=== PATIENT | female | born 1970 | race Caucasian/White ===

== ENCOUNTER 2016-10-24 11:20 | Emergency (ER) | payer BC ==
[2016-10-24 11:52] VITALS: TEMP 98.2
[2016-10-24] MEDS ORDERED: IPRATROPIUM-ALBUTEROL 3 ML NEB INHALATION STA (12:07)
[2016-10-24] MEDS ORDERED: predniSONE 20 MG TAB PO STA (12:07)
--- NOTE | 2016-10-24 12:40 | ED ---
General Adult HPI - General Chief complaint: Shortness of Breath Stated complaint: ANGE, Dx WITH PNEUMONIA, ASTHMA Time Seen by Provider: 10/24/16 11:52 Source: patient, family, RN notes reviewed Mode of arrival: ambulatory Limitations: no limitations - History of Present Illness Initial comments: 46-year-old female with history of asthma presenting for shortness of breath. Patient states that she had onset of shortness of breath and cough about 2 weeks ago after she was at a [facility]. She states she's been seen several times since this for treatment for asthma exacerbation. She states she has completed 2 separate courses of steroids as well as 2 separate courses of antibiotics. She states she felt better while on the steroids but after stopping steroids she feels like symptoms are returning. She states she feels short of breath. She also states that she has mild nonproductive cough. She has been using her home nebulizer treatments with improvement of her symptoms, but symptoms return. She denies any fevers or chills. She denies any chest pain. She is a previous cigarette smoker but states she quit about a year ago. - Related Data Home Medications Medication Instructions Recorded Confirmed Albuterol Nebulized [Ventolin 2.5 mg INHALATION RT-Q4H PRN 10/24/16 10/24/16 Nebulized] Albuterol Sulfate [Proair Hfa] 1 - 2 puff INHALATION RT-Q4H PRN 10/24/16 Loratadine [Claritin] 10 mg PO DAILY 10/24/16 10/24/16 Ranitidine HCl [Zantac] 150 mg PO DAILY 10/24/16 10/24/16 guaiFENesin [Mucinex] 600 mg PO Q12H PRN 10/24/16 10/24/16 Previous Rx's Medication Instructions Recorded Montelukast [Singulair] 10 mg PO HS #30 tab 10/24/16 predniSONE 20 mg PO DIRECTED #35 tab 10/24/16 Allergies Allergy/AdvReac Type Severity Reaction Status Date / Time clindamycin Allergy Unknown Verified 10/24/16 13:20 Penicillins Allergy Unknown Verified 10/24/16 13:20 sulfamethoxazole Allergy Unknown Verified 10/24/16 13:20 [From Bactrim] tetracycline Allergy Unknown Verified 10/24/16 13:20 trimethoprim [From Bactrim] Allergy Unknown Verified 10/24/16 13:20 Review of Systems ROS Statement: Those systems with pertinent positive or pertinent negative responses have been documented in the HPI. ROS Other: All systems not noted in ROS Statement are negative. Past Medical History Past Medical History: Asthma, GERD/Reflux History of Any Multi-Drug Resistant Organisms: None Reported Past Surgical History: Appendectomy Additional Past Surgical History / Comment(s): ovarian Past Psychological History: No Psychological Hx Reported Smoking Status: Former smoker Past Alcohol Use History: None Reported Past Drug Use History: None Reported General Exam - General Exam Comments Initial Comments: General: Awake and Alert. No acute distress. Does not appear acutely ill. Eyes: HARVINDER, EOM intact. No nystagmus. No scleral icterus. HENT: Atraumatic, normocephalic. Mucous membranes moist. Trachea midline. Neck: The neck is supple, there is no tenderness or JVD. Cardiovascular: Regular rate and rhythm. No murmur, rub, or gallop is appreciated. Distal pulses intact. Respiratory: Lungs are clear to auscultation bilaterally. Mild wheezes and decreased air movement. No rales, rhonchi. No respiratory distress. Gastrointestinal: Soft, Nontender. No rebound or guarding. Non-distended. No masses or organomegaly noted. No CVA tenderness. Musculoskeletal: No tenderness. Normal ROM. No gross deformity. No strength deficits. Neurological: A&Ox3. CN II-XII grossly intact, There are no obvious motor or sensory deficits. Coordination appears grossly intact. Speech is normal. Skin: Skin is warm and dry and no rashes or lesions are noted. Psychiatric: Cooperative, appropriate mood & affect, normal judgment. Limitations: no limitations Course Vital Signs 10/24/16 10/24/16 10/24/16 11:49 13:33 13:45 Temperature 98.2 F Pulse Rate 117 H 108 H 112 H Respiratory 24 Rate Blood Pressure 159/78 O2 Sat by Pulse 93 L Oximetry Medical Decision Making - Medical Decision Making 46-year-old female with history of asthma presenting for the asthma exacerbation. Patient states she's had several courses of steroids for this recently which did improve her symptoms until the steroids ended. She has not followed up with her PCP in over a year. She states she hasn't had problems with her asthma for many years up until recently. She is not actively tobacco user. Low suspicion of PE at this time given no significant risk factors. CXR without evidence of pneumonia Patient was given breathing treatment and prednisone. On reevaluation she states she is feeling improved. Improved air movement on reevaluation. Discussed restarting steroid treatment over a 2 week taper. Discussed importance of close follow-up with PCP. Discussed importance of pulmonary function testing and further management of her asthma. Patient also started on Singulair at this time. Patient has a nebulizer solution at home and does not need a refill. Discussed concerning signs symptoms for immediate return to the ED. Patient is agreeable with plan and discharge home. - Radiology Data Radiology results: report reviewed, image reviewed Disposition Clinical Impression: Asthma exacerbation Disposition: HOME SELF-CARE Instructions: Asthma (ED) Prescriptions: Montelukast [Singulair] 10 mg PO HS #30 tab predniSONE 20 mg PO DIRECTED #35 tab Referrals: Kwasi Santiago MD [Primary Care Provider] - 1-2 days Time of Disposition: 14:27
--- NOTE | 2016-10-24 13:37 | XR ---
EXAMINATION TYPE: XR chest 2V DATE OF EXAM: 10/24/2016 1:32 PM COMPARISON: NONE HISTORY: Chest pain TECHNIQUE: Single frontal view of the chest is obtained. FINDINGS: There is no focal air space opacity, pleural effusion, or pneumothorax seen. Granulomas seen within t he periphery of the right midlung zone. The cardiac silhouette size is within normal limits. The osseous structures are intact. IMPRESSION: 1. No acute process.
[2016-10-24 13:46] VITALS: PULSE 112
[2016-10-24 14:38] VITALS: BP 150/70; RESP 18
== END 2016-10-24 14:37 | disposition home or self-care (01) ==
LOC: EC 11:20
DX: J45.901 Unspecified asthma with (acute) exacerbation (principal); K21.9 Gastro-esophageal reflux disease without esophagitis; Z87.891 Personal history of nicotine dependence; Z79.899 Other long term (current) drug therapy; Z88.0 Allergy status to penicillin; Z88.1 Allergy status to other antibiotic agents
CPT/HCPCS: 94640; 71020; 99284; J7512

== ENCOUNTER 2016-11-09 21:32 | Observation (INO) | payer BC ==
[2016-11-09] MEDS ORDERED: SODIUM CHLORIDE 0.9% 1,000 ML IV STA (21:51)
--- NOTE | 2016-11-09 22:10 | ED ---
SOB HPI - General Chief Complaint: Shortness of Breath Stated Complaint: ANGE Time Seen by Provider: 11/09/16 21:51 Source: patient, RN notes reviewed, old records reviewed Mode of arrival: ambulatory Limitations: no limitations - History of Present Illness Initial Comments: This is a 46-year-old female with chief complaint of 1 month of difficulty in breathing and shortness of breath. Patient reports that she has history of asthma. She states that she's been on steroids multiple times this past month. She originally thought that all this started after sitting by a bonfire to and early October. She states that she also was diagnosed with pneumonia and completed a round of antibiotics. She states that it is not getting any better after continued antibiotics. She reports that she just finished steroids on Saturday and continues to have this nonproductive cough. She rates the emergency department with oxygen saturation at 93%, tachycardic at 120 bpm. Patient was placed on 2 L O2 at that time. Patient also reports that she'll have intermittent chest pain. She states over entire chest when it does occur. Patient states it does not occur all the time. She states that just is continue to happen intermittently over the past months. She states is been a little worse today. Denies any nausea or vomiting abdominal pain. Denies any back pain, peripheral paresthesias, headache, changes in vision. - Related Data Home Medications Medication Instructions Recorded Confirmed Albuterol Nebulized [Ventolin 2.5 mg INHALATION RT-Q4H PRN 10/24/16 11/09/16 Nebulized] Albuterol Sulfate [Proair Hfa] 2 puff INHALATION RT-Q4H PRN 10/24/16 11/09/16 Loratadine [Claritin] 10 mg PO DAILY 10/24/16 11/09/16 Ranitidine HCl [Zantac] 150 mg PO BID 10/24/16 11/09/16 guaiFENesin [Mucinex] 600 mg PO Q12H PRN 10/24/16 11/09/16 Benzonatate [Tessalon Perles] 200 mg PO TID PRN 11/09/16 11/09/16 Ibuprofen [Advil] 200 mg PO Q8HR PRN 11/09/16 11/09/16 Saline Nasal Gel [[place] Nasal Gel] 1 applic TOPICAL DAILY PRN 11/09/16 11/09/16 Previous Rx's Medication Instructions Recorded Montelukast [Singulair] 10 mg PO HS #30 tab 10/24/16 Allergies Allergy/AdvReac Type Severity Reaction Status Date / Time clindamycin Allergy Rash/Hives Verified 11/10/16 03:40 Penicillins Allergy Unknown Verified 11/09/16 22:40 sulfamethoxazole Allergy Rash/Hives Verified 11/10/16 03:40 [From Bactrim] tetracycline Allergy Rash/Hives Verified 11/10/16 03:40 trimethoprim [From Bactrim] Allergy Rash/Hives Verified 11/10/16 03:40 Review of Systems ROS Statement: Those systems with pertinent positive or pertinent negative responses have been documented in the HPI. ROS Other: All systems not noted in ROS Statement are negative. Past Medical History Past Medical History: Asthma, GERD/Reflux, Pneumonia History of Any Multi-Drug Resistant Organisms: None Reported Past Surgical History: Appendectomy Additional Past Surgical History / Comment(s): ovarian Past Psychological History: No Psychological Hx Reported Smoking Status: Former smoker Past Alcohol Use History: None Reported Past Drug Use History: None Reported - Past Family History Mother Family Medical History: Chest Pain / Angina, COPD, Coronary Artery Disease (CAD) Father Family Medical History: Hypertension General Exam - General Exam Comments Initial Comments: Well-appearing 46-year-old female. No distress. Limitations: no limitations General appearance: alert, in no apparent distress Head exam: Present: atraumatic, normocephalic, normal inspection Eye exam: Present: normal appearance, PERRL, EOMI. Absent: scleral icterus, conjunctival injection, periorbital swelling ENT exam: Present: normal exam, mucous membranes moist Neck exam: Present: normal inspection. Absent: tenderness, meningismus, lymphadenopathy Respiratory exam: Present: normal lung sounds bilaterally, wheezes (wheezing and non productive cough). Absent: respiratory distress, rales, rhonchi, stridor Cardiovascular Exam: Present: regular rate, normal rhythm, normal heart sounds. Absent: systolic murmur, diastolic murmur, rubs, gallop, clicks GI/Abdominal exam: Present: soft, normal bowel sounds. Absent: distended, tenderness, guarding, rebound, rigid Extremities exam: Present: normal inspection, full ROM, normal capillary refill. Absent: tenderness, pedal edema, joint swelling, calf tenderness Back exam: Present: normal inspection Neurological exam: Present: alert, oriented X3, CN II-XII intact Psychiatric exam: Present: normal affect, normal mood Skin exam: Present: warm, dry, intact, normal color. Absent: rash Course Vital Signs 11/09/16 11/09/16 11/09/16 21:44 22:03 22:22 Temperature 98.9 F Pulse Rate 113 H 107 H 100 Respiratory 24 18 Rate Blood Pressure 162/80 160/90 O2 Sat by Pulse 93 L 93 L Oximetry 11/09/16 11/09/16 11/10/16 22:27 22:33 00:17 Temperature 97.9 F Pulse Rate 102 H 100 104 H Respiratory 18 18 Rate Blood Pressure 161/89 O2 Sat by Pulse 97 95 Oximetry 11/10/16 11/10/16 11/10/16 00:18 00:31 02:45 Temperature Pulse Rate 98 93 108 H Respiratory 20 Rate Blood Pressure 147/95 O2 Sat by Pulse 97 Oximetry Medical Decision Making - Medical Decision Making This is a 46-year-old female is had multiple rounds of steroids and an antibiotic to treat for pneumonia and shortness of breath. Patient arrives to the emergency department with an oxygen saturation of 93% on room air. Patient reports that she just feels that she cannot get enough air when she takes a deep breath in. Patient reports she's been using breathing treatments multiple times at home. Last breathing treatment was in our prior to arriving to emergency department. She does have a history of asthma. She is a previous smoker. She quit smoking in 1981. She states that overall she is generally healthy. All of her lab work was obtained and negative for any acute process. Negative d-dimer. Chest x-ray was also negative. Patient continues to have some mild wheezing after DuoNeb treatment. Patient given IV Solu-Medrol. Discussed the case with Dr. Navarrete. We will be admitting the patient for repeat cardiac enzymes for her intermittent chest pain. Unlikely for this to be significant cardiac issue due to the length of time. We also will do some IV steroids and repeated breathing treatments. Patient agrees to the admission. Patient understands treatment plan will comply. - Lab Data Result diagrams: 11/09/16 22:16 11/09/16 22:16 Lab Results 11/09/16 11/09/16 11/09/16 Range/Units 22:16 22:16 22:16 WBC 7.5 (3.8-10.6) k/uL RBC 4.81 (3.80-5.40) m/uL Hgb 15.4 (11.4-16.0) gm/dL Hct 44.4 (34.0-46.0) % MCV 92.2 (80.0-100.0) fL MCH 32.1 (25.0-35.0) pg MCHC 34.8 (31.0-37.0) g/dL RDW 13.1 (11.5-15.5) % Plt Count 216 (150-450) k/uL Neutrophils % 50 % Lymphocytes % 32 % Monocytes % 6 % Eosinophils % 9 % Basophils % 1 % Neutrophils # 3.8 (1.3-7.7) k/uL Lymphocytes # 2.4 (1.0-4.8) k/uL Monocytes # 0.4 (0-1.0) k/uL Eosinophils # 0.7 (0-0.7) k/uL Basophils # 0.1 (0-0.2) k/uL PT (9.0-12.0) sec INR (<1.1) APTT (22.0-30.0) sec D-Dimer (<0.60) mg/L FEU Sodium 143 (137-145) mmol/L Potassium 3.7 (3.5-5.1) mmol/L Chloride 106 (98-107) mmol/L Carbon Dioxide 26 (22-30) mmol/L Anion Gap 11 mmol/L BUN 17 (7-17) mg/dL Creatinine 0.80 (0.52-1.04) mg/dL Est GFR (MDRD) Af Amer >60 (>60 ml/min/1.73 sqM) Est GFR (MDRD) Non-Af >60 (>60 ml/min/1.73 sqM) Glucose 94 (74-99) mg/dL Calcium 9.2 (8.4-10.2) mg/dL Total Bilirubin 0.5 (0.2-1.3) mg/dL AST 23 (14-36) U/L ALT 39 (9-52) U/L Alkaline Phosphatase 108 (38-126) U/L Total Creatine Kinase 35 (30-135) U/L CK-MB (CK-2) 0.4 (0.0-2.4) ng/mL CK-MB (CK-2) Rel Index 1.1 Troponin I <0.012 (0.000-0.034) ng/mL Total Protein 6.8 (6.3-8.2) g/dL Albumin 4.1 (3.5-5.0) g/dL 11/09/16 Range/Units 22:16 WBC (3.8-10.6) k/uL RBC (3.80-5.40) m/uL Hgb (11.4-16.0) gm/dL Hct (34.0-46.0) % MCV (80.0-100.0) fL MCH (25.0-35.0) pg MCHC (31.0-37.0) g/dL RDW (11.5-15.5) % Plt Count (150-450) k/uL Neutrophils % % Lymphocytes % % Monocytes % % Eosinophils % % Basophils % % Neutrophils # (1.3-7.7) k/uL Lymphocytes # (1.0-4.8) k/uL Monocytes # (0-1.0) k/uL Eosinophils # (0-0.7) k/uL Basophils # (0-0.2) k/uL PT 9.9 (9.0-12.0) sec INR 1.0 (<1.1) APTT 23.1 (22.0-30.0) sec D-Dimer 0.19 (<0.60) mg/L FEU Sodium (137-145) mmol/L Potassium (3.5-5.1) mmol/L Chloride (98-107) mmol/L Carbon Dioxide (22-30) mmol/L Anion Gap mmol/L BUN (7-17) mg/dL Creatinine (0.52-1.04) mg/dL Est GFR (MDRD) Af Amer (>60 ml/min/1.73 sqM) Est GFR (MDRD) Non-Af (>60 ml/min/1.73 sqM) Glucose (74-99) mg/dL Calcium (8.4-10.2) mg/dL Total Bilirubin (0.2-1.3) mg/dL AST (14-36) U/L ALT (9-52) U/L Alkaline Phosphatase (38-126) U/L Total Creatine Kinase (30-135) U/L CK-MB (CK-2) (0.0-2.4) ng/mL CK-MB (CK-2) Rel Index Troponin I (0.000-0.034) ng/mL Total Protein (6.3-8.2) g/dL Albumin (3.5-5.0) g/dL 11/10/16 00:25 Patient's EKG shows normal sinus rhythm. Possible left atrial enlargement. Nonspecific ST abnormality. Prolonged QT. Abnormal EKG. This was a ventricular beats per minute. Normal section 94 ms. QT QTC 370/47 SECONDS. No evidence of ST elevation. No evidence of atrial or ventricular arrhythmias. - Radiology Data Radiology results: report reviewed His x-ray reviewed and negative for any acute process. Disposition Clinical Impression: Shortness of breath, Cough, Asthma, Intermittent chest pain Disposition: ADMITTED IP TO THIS [facility] Condition: Stable Time of Disposition: 01:15
[2016-11-09] MEDS ORDERED: IPRATROPIUM-ALBUTEROL 3 ML NEB INHALATION STA ×2 (22:11→23:42)
[2016-11-09 22:24] LABS: Basophils # (A) 0.1 k/uL (0-0.2); Basophils % (A) 1 %; CH 32.8; CHCM 35.8; Eosinophils # (A) 0.7 k/uL (0-0.7); Eosinophils % (A) 9 %; HCT 44.4 % (34.0-46.0); HDW 2.75; HGB 15.4 gm/dL (11.4-16.0); Luc # (Auto) 0.17; Luc % (Auto) 2; Lymphocytes # (A) 2.4 k/uL (1.0-4.8); Lymphocytes % (A) 32 %; MCH 32.1 pg (25.0-35.0); MCHC 34.8 g/dL (31.0-37.0); MCV 92.2 fL (80.0-100.0); Mean Platelet Volume 6.2; Monocytes # (A) 0.4 k/uL (0-1.0); Monocytes % (A) 6 %; Neutrophils # (A) 3.8 k/uL (1.3-7.7); Neutrophils % (A) 50 %; RBC 4.81 m/uL (3.80-5.40); RDW 13.1 % (11.5-15.5); WBC 7.5 k/uL (3.8-10.6); WBC (Perox) 7.33
[2016-11-09 22:37] LABS: ALT 39 U/L (9-52); AST 23 U/L (14-36); Alkaline Phosphatase 108 U/L (38-126); Anion Gap 11 mmol/L; Blood Urea Nitrogen 17 mg/dL (7-17); Calcium 9.2 mg/dL (8.4-10.2); Carbon Dioxide 26 mmol/L (22-30); Chloride 106 mmol/L (98-107); Glucose 94 mg/dL (74-99); Non-African American GFR(MDRD) >60 (>60 ml/min/1.73 sqM); Potassium 3.7 mmol/L (3.5-5.1); Sodium 143 mmol/L (137-145); Total Bilirubin 0.5 mg/dL (0.2-1.3); Total Protein 6.8 g/dL (6.3-8.2)
[2016-11-09 22:43] LABS: Creatine Kinase 35 U/L (30-135)
[2016-11-09 22:44] LABS: Partial Thromboplastin Time 23.1 sec (22.0-30.0); Prothrombin Time 9.9 sec (9.0-12.0)
--- NOTE | 2016-11-09 22:56 | XR ---
EXAM: XR Chest, 2 Views CLINICAL HISTORY: Reason: difficulty breathing TECHNIQUE: Frontal and lateral views of the chest. COMPARISON: Chest radiographs 10/24/2016 FINDINGS: Lungs: Stable small radiodense nodule peripheral right mid to lower lung zone suggesting small calcified right lower lobe pulmonary granuloma. Lungs are otherwise clear. No acute pulmonary infiltrates or consolidations. Pleural space: No evidence of pleural effusion or pneumothorax. Heart: Heart size and mediastinal structures are within normal limits. Mediastinum: Unremarkable. Bones/joints: Imaged bony thorax is unremarkable. Other findings: No significant change since 10/24/2016. IMPRESSION: No evidence of active chest disease.
[2016-11-09 22:57] LABS: Creatine Kinase MB 0.4 ng/mL (0.0-2.4); Troponin I <0.012 ng/mL (0.000-0.034)
[2016-11-09] MEDS ORDERED: methylPREDNISolone SOD SUCCI 125 MG/2 ML VIAL IV STA (23:42)
[2016-11-10] MEDS ORDERED: MAG HYDROX/AL HYDROX/SIMETH 30 ML, HYOSCYAMINE ELIXIR 10 ML, CIMETIDINE HCL 300 MG, LID... PO STA ×4 (00:20)
[2016-11-10] MEDS ORDERED: ACETAMINOPHEN TAB 325 MG TAB PO PRN (01:25)
[2016-11-10] MEDS ORDERED: NALOXONE 0.4 MG/ML 1 ML VIAL IV PRN (01:25)
[2016-11-10] MEDS ORDERED: Acetaminophen-Codeine 300-30mg TAB PO PRN (01:25)
[2016-11-10] MEDS ORDERED: BENZOCAINE/MENTHOL LOZENG 1 EACH LOZENGE MUCOUS MEM PRN (01:25)
[2016-11-10] MEDS: SODIUM CHLORIDE 0.9% 1,000 ML IV SCH ×3 (04:08→19:47)
[2016-11-10 05:49] LABS: Creatine Kinase 41 U/L (30-135)
[2016-11-10] MEDS ORDERED: methylPREDNISolone SOD SUCCI 125 MG/2 ML VIAL IV SCH (06:00)
[2016-11-10 06:02] LABS: Creatine Kinase MB 0.5 ng/mL (0.0-2.4); Troponin I <0.012 ng/mL (0.000-0.034)
[2016-11-10 07:33] LABS: Glucose,Whole Blood 145 mg/dL (75-99)
[2016-11-10] MEDS: IPRATROPIUM-ALBUTEROL 3 ML NEB INHALATION SCH ×4 (07:35→20:19)
[2016-11-10] MEDS: guaiFENesin 600 MG TABLET.ER PO SCH ×2 (08:21→21:38)
[2016-11-10] MEDS: PANTOPRAZOLE 40 MG/10 ML VIAL IV SCH (08:21)
[2016-11-10 10:23] LABS: Creatine Kinase 45 U/L (30-135)
[2016-11-10 10:36] LABS: Creatine Kinase MB 0.6 ng/mL (0.0-2.4); Troponin I <0.012 ng/mL (0.000-0.034)
[2016-11-10 12:25] LABS: Glucose,Whole Blood 203 mg/dL (75-99)
--- NOTE | 2016-11-10 14:04 | HP ---
DATE OF ADMISSION: This dictation is both history and physical and discharge summary. The patient is a 46-year-old who came in with complaints of shortness of breath, wheezing, and patient does have history of asthma. Patient was found to be asthma exacerbation. Patient was started on systemic steroids. The patient was complaining of cough with yellowish sputum production. Patient chest x-ray did not show any pneumonic process. Patient is presently on 2 L of oxygen, which we will get rid of. Will ambulate the patient. The patient was tachycardic secondary to hypoxemia, which improved now and patient is not tachycardic anymore. While walking will also check her vitals and if patient is not tachycardic anymore, not tachypneic anymore and patient is saturating okay, patient will be discharged today. Otherwise, will keep her one more day. Patient will not require any antibiotics at this point of time. Patient's yellowish sputum is secondary to asthmatic bronchitis. Patient denied any fever, chills, dysuria, nausea, vomiting. REVIEW OF SYSTEMS: CONSTITUTIONAL: No fever, no malaise, no fatigue. HEENT: No recent visual problems or hearing problems. Denied any sore throat. CARDIOVASCULAR: No chest pain, orthopnea, PND, no palpitations, no syncope. RESPIRATORY: As described in HPI. GASTROINTESTINAL: No diarrhea, no nausea, no vomiting, no abdominal pain. Normoactive bowel sounds. NEUROLOGICAL: No headaches, no weakness, no numbness. HEMATOLOGICAL: Denies any bleeding or petechiae. GENITOURINARY: Denies any burning micturition, frequency, or urgency. MUSCULOSKELETAL/RHEUMATOLOGICAL: Denies any joint pain, swelling, or any muscle pain. ENDOCRINE: Denies any polyuria or polydipsia. The rest of the 14 point review of systems is negative. Home medications include: 1. Albuterol. 2. Loratadine. 3. Ranitidine. 4. Guaifenesin. 5. Benzonatate. 6. Ibuprofen. 7. Saline nasal spray. 8. The patient is also on montelukast. ALLERGIES: Allergic to CLINDAMYCIN, PENICILLIN, BACTRIM, TETRACYCLINE. Past medical history is significant for asthma, gastroesophageal reflux disease, pneumonias in the past, appendectomy. SOCIAL HISTORY: Former smoker. Quit smoking years ago. Denied any alcohol abuse or any drug abuse. FAMILY HISTORY: Significant for mother with coronary artery disease and father had hypertension, PHYSICAL EXAMINATION: VITAL SIGNS: Temperature 97.2, pulse of 90, respiratory rate of 18, blood pressure is 122/69, saturating at 92% on 2 L of O2 nasal cannula. GENERAL: The patient is alert and oriented x3, not in any acute distress. Well developed, well nourished. HEENT: Pupils are round and equally reacting to light. EOMI. No scleral icterus. No conjunctival pallor. Normocephalic, atraumatic. No pharyngeal erythema. No thyromegaly. CARDIOVASCULAR: S1 and S2 present. No murmurs, rubs, or gallops. RESPIRATORY EXAMINATION: Fairly good air entry into bilateral lung rousseau. No wheezing was appreciated. ABDOMEN: Soft, nontender, nondistended, normoactive bowel sounds. No palpable organomegaly. MUSCULOSKELETAL: No joint swelling or deformity. EXTREMITIES: No cyanosis, clubbing, or pedal edema. NEUROLOGICAL: Gross neurological examination did not reveal any focal deficits. SKIN: No rashes. LABORATORY DATA: CBC, CMP, essentially within normal limits. Troponins and EKG are within normal limits. Chest x-ray as mentioned above. ASSESSMENT AND PLAN: 1. Acute asthma exacerbation. Patient appears to have moderate chronic intermittent asthma. The patient will be continued on systemic steroids, inhalational treatments and further management and discharge plan as mentioned above. Acute hypoxemia secondary to asthma exacerbation. 2. Gastroesophageal reflux disease for which patient is on ranitidine, which will be continued. 3. Seasonal allergies. The patient's primary care physician is Dr. Santiago and if patient is clinically doing well with walking pulse ox with stable vital signs that is controlled heart rate, controlled respiratory rate and good pulse ox, patient will be discharged today. Otherwise, patient will end up staying here. If patient is being discharged, I will discharge her on weaning dose of steroids. Follow with Dr. Santiago in 3 to 7 days. Activity as tolerated. Regular diet. This dictation is both H&P and discharge summary.
[2016-11-10 17:55] LABS: Glucose,Whole Blood 126 mg/dL (75-99)
[2016-11-10 20:59] LABS: Glucose,Whole Blood 194 mg/dL (75-99)
[2016-11-10] MEDS: methylPREDNISolone SOD SUCCI 40 MG/ML 1 ML VIAL IV SCH (21:39)
[2016-11-11] MEDS: SODIUM CHLORIDE 0.9% 1,000 ML IV SCH ×2 (02:43→11:41)
[2016-11-11 07:31] LABS: Glucose,Whole Blood 131 mg/dL (75-99)
[2016-11-11 07:44] VITALS: BP 131/79; RESP 18; TEMP 97.5
[2016-11-11] MEDS: guaiFENesin 600 MG TABLET.ER PO SCH (08:07)
[2016-11-11] MEDS: methylPREDNISolone SOD SUCCI 40 MG/ML 1 ML VIAL IV SCH (08:07)
[2016-11-11] MEDS: PANTOPRAZOLE 40 MG/10 ML VIAL IV SCH (08:07)
[2016-11-11] MEDS: IPRATROPIUM-ALBUTEROL 3 ML NEB INHALATION SCH ×2 (09:10→13:40)
[2016-11-11 10:51] LABS: Glucose,Whole Blood 160 mg/dL (75-99)
[2016-11-11 12:15] LABS: Glucose,Whole Blood 170 mg/dL (75-99)
[2016-11-11 14:10] VITALS: PULSE 98
--- NOTE | 2016-11-11 14:38 | DS ---
DATE OF ADMISSION: 11/10/2016 DATE OF DISCHARGE: 11/11/2016 Patient is admitted for asthma exacerbation. Patient is clinically doing. Ambulating again, will ambulate the patient again. If patient is clinically doing well, will be discharged today and patient has a cough with reddish sputum production, which is typical of ( ) which we see in asthma. Patient was seen and examined on the day of discharge. Vitals are stable. PHYSICAL EXAMINATION: GENERAL: The patient is alert and oriented x3, not in any acute distress. Well developed, well nourished. HEENT: Pupils are round and equally reacting to light. EOMI. No scleral icterus. No conjunctival pallor. Normocephalic, atraumatic. No pharyngeal erythema. No thyromegaly. CARDIOVASCULAR: S1 and S2 present. No murmurs, rubs, or gallops. PULMONARY: Chest is clear to auscultation, no wheezing or crackles. ABDOMEN: Soft, nontender, nondistended, normoactive bowel sounds. No palpable organomegaly. MUSCULOSKELETAL: No joint swelling or deformity. EXTREMITIES: No cyanosis, clubbing, or pedal edema. NEUROLOGICAL: Gross neurological examination did not reveal any focal deficits. SKIN: No rashes. FINAL DIAGNOSES: 1. Asthma exacerbation. 2. Tachycardia, due to hypoxemia. Will obtain TSH. 3. Gastroesophageal reflux disease. 4. Seasonal allergies. Patient will be discharged today with follow up with Dr. Kwasi Santiago. Patient has follow-up tomorrow. Activity as tolerated. Regular diet. Avoid allergens. If patient's walking pulse ox and the patient does well after a walk without desaturations or tachycardia or tachypnea, patient will be discharged today.
== END 2016-11-11 14:23 | disposition home or self-care (01) ==
LOC: EC 21:32 → 4MS4W 11-10 01:49
PROVIDERS: ADMIT Hospitalist; ATTEND Hospitalist
DX: J45.21 Mild intermittent asthma with (acute) exacerbation (principal); R09.02 Hypoxemia; K21.9 Gastro-esophageal reflux disease without esophagitis; Z79.899 Other long term (current) drug therapy; Z88.1 Allergy status to other antibiotic agents; Z88.0 Allergy status to penicillin; Z88.2 Allergy status to sulfonamides; Z87.01 Personal history of pneumonia (recurrent); Z87.891 Personal history of nicotine dependence; Z82.5 Family history of asthma and other chronic lower respiratory diseases; Z82.49 Family history of ischemic heart disease and other diseases of the circulatory system
CPT/HCPCS: 96365; 96366 ×2; 96361; 96374; 99285; 36415; 94640 ×4; 93005 ×2; 85379 ×2; 80053; 82550 ×2; 82553 ×2; 84484 ×2; 85025; 85610; 85730; 71020; G0378 ×2; J2920 ×2; J2930; C9113 ×2

== ENCOUNTER → 2016-11-20 | Outpatient (CLI) | payer BC ==
--- NOTE | 2016-11-20 21:53 | WWHP ---
DATE OF DICTATION: 11/20/2016 CHIEF COMPLAINT: The patient is here for her routine gynecologic exam and mammogram. HISTORY OF PRESENT ILLNESS: This is a 46-year-old G2, P2 with an LMP of 2013. The patient states she has a history of somewhat irregular menses; throughout her life they have been intermittently irregular. She was placed on Depo-Provera several years ago, partly because of the menstrual irregularity. She was amenorrheic while on Depo-Provera, and this was discontinued in 2011. Shortly thereafter she was placed on oral contraceptives until 2013, when her prescription ran out. She has not had a period since then and is no longer on oral contraception. She denies any significant hot flashes. She is otherwise without gynecologic complaints. Her last pelvic exam was about 2011 and her last mammogram was around that time as well. PAST MEDICAL HISTORY: 1. Asthma. 2. Fibrocystic changes of the breast. 3. Gastroesophageal reflux disease. 4. Hiatal hernia. 5. Migraine headaches. 6. Hypoglycemia, which is diet-controlled. MEDICATIONS: 1. Prednisone 20 mg daily. 2. Claritin 10 mg daily. 3. Zantac 150 mg daily. 4. Mucinex 1 daily. 5. Albuterol inhaler 2 puffs q.i.d. p.r.n. 6. Singulair at bedtime p.r.n. 7. Collagen supplement 1 t.i.d., but she does not use it every day. ALLERGIES: 1. SEPTRA. 2. BACTRIM. 3. CLINDAMYCIN. 4. PENICILLIN. 5. TETRACYCLINE. Many of these caused breathing difficulties. PAST SURGICAL HISTORY: 1. In 1985, a left ovarian cystectomy and appendectomy. 2. She has also had multiple laparoscopies in the past. PAST OB HISTORY: Two vaginal deliveries. 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 She has had some episodes of irregular menses throughout her life, but she also did have times when they were regular. She was told she had polycystic ovarian syndrome at one point. She has no history of STDs. SOCIAL HISTORY: She quit smoking in 2014; has about 3 to 4 alcoholic drinks per month; denies drug use. She has been since 2005. This is her second marriage. Her current is from [place]. She is expecting her fourth grandchild. FAMILY HISTORY: Grandfather had lung cancer. She has 2 cousins who had what she believes was ovarian cancer. Mother had an CO and COPD. REVIEW OF SYSTEMS: She has gained about 20 pounds since she was put on steroids about a month ago for her asthma exacerbation. She denies respiratory problems. CARDIAC: She has had occasional chest pains and she has been seen for this and is still undergoing workup for this. GI: She believes the steroids have caused heartburn. PHYSICAL EXAM: Blood pressure 138/90. Height 5 feet 2 inches. Weight 142 pounds. Temperature 98.1. Pulse 94. This is a well-developed, well-nourished white female who is alert and oriented x3, in no acute distress. HEENT is within normal limits. NECK: Supple without mass or thyromegaly. CHEST AND LUNGS: Clear to auscultation. HEART: Regular rate and rhythm. Breasts are without mass or discharge. The left breast is mildly tender. Axillary exam is negative for adenopathy. BACK: Negative for CVA tenderness. ABDOMEN: Soft, nontender, without palpable masses. PELVIC EXAM: Normal external genitalia. Cervix and vagina reveal minimal atrophy without lesions. There is no evidence of prolapse. There is no unusual discharge. The uterus is midposition, nongravid size and nontender. There are no palpable adnexal masses or tenderness. Rectal exam is negative for mass or tenderness and is negative for occult blood. EXTREMITIES: Nontender. IMPRESSION: A 46-year-old female with secondary amenorrhea for more than 2 years. This most likely represents menopausal change. Differential diagnosis will also include polycystic ovarian syndrome and less likely thyroid dysfunction, since she states thyroid testing was done by her primary care physician recently. PLAN: 1. Pap smear was performed. 2. Self breast examination was discussed. 3. Mammogram will be done today. 4. Blood tests will include FSH and estradiol. She states thyroid function testing was done through Dr. Santiago recently and will confirm this with him. 5. Osteoporosis prevention was discussed. 6. She will return in one year.
--- NOTE | 2016-11-21 12:47 | MM ---
Reason for exam: screening (asymptomatic). Last mammogram was performed 8 years and 1 month ago. History: Taking hormonal contraceptives for 1 month beginning at age 38. Physical Findings: A clinical breast exam by your physician is recommended on an annual basis and results should be correlated with mammographic findings. MG 3D Screening Mammo W/Cad Bilateral CC and MLO view(s) were taken. Prior study comparison: October 28, 2008, bilateral diagnostic digital mammog. May 01, 2004, bilateral screening mammogram. The breast tissue is heterogeneously dense. This may lower the sensitivity of mammography. Finding: There are typically benign round calcifications in the left breast. There is no discrete abnormality. ASSESSMENT: Benign, BI-RAD 2 RECOMMENDATION: Routine screening mammogram of both breasts in 1 year.
== END ==
LOC: WWCWWP 07:59
PROVIDERS: ATTEND Obstetrics & Gynecology
DX: Z12.31 Encounter for screening mammogram for malignant neoplasm of breast (principal)
CPT/HCPCS: 77063; G0202

== ENCOUNTER → 2016-11-20 | Outpatient (CLI) | payer BC ==
[2016-11-20 11:37] LABS: Follicle Stimulating Hormone 47.2 mIU/mL
== END | disposition home or self-care (01) ==
LOC: LABWHC1 09:18
PROVIDERS: ATTEND Obstetrics & Gynecology
DX: N91.1 Secondary amenorrhea (principal)
CPT/HCPCS: 36415; 82670; 83001

== ENCOUNTER 2017-04-23 00:35 | Emergency (ER) | payer BC ==
[2017-04-23] MEDS ORDERED: IPRATROPIUM-ALBUTEROL 3 ML NEB INHALATION STA (01:01)
[2017-04-23] MEDS ORDERED: methylPREDNISolone SOD SUCCI 125 MG/2 ML VIAL IM ONE (01:01)
[2017-04-23] MEDS ORDERED: BENZONATATE 100 MG CAP PO STA (01:01)
--- NOTE | 2017-04-23 01:52 | XR ---
EXAMINATION TYPE: XR chest 2V DATE OF EXAM: 04/23/2017 COMPARISON: 11/09/2016 HISTORY: Cough TECHNIQUE: Frontal and lateral views of the chest are obtained. FINDINGS: Heart and mediastinum are normal. Lungs are clear. Costophrenic angles are clear. There is a small calcified granuloma in the periphery of right midlung. There is no evidence of pleural effus ion. Bony thorax is intact. IMPRESSION: No active cardiopulmonary disease. No change.
--- NOTE | 2017-04-23 02:19 | ED ---
General Adult HPI - General Chief complaint: Upper Respiratory Infection Stated complaint: cough,ANGE Time Seen by Provider: 04/23/17 00:47 Source: patient Mode of arrival: ambulatory Limitations: no limitations - History of Present Illness Initial comments: 47-year-old female patient presents to emergency department today for complaints of shortness of breath, wheezing, and upper respiratory symptoms. Patient states that she started 2-3 days ago with nasal congestion, sore throat , and slight cough. Patient states that she feels this has made her asthma worse, she states that she has been wheezing and having some shortness of breath throughout the day today. She states that her chest feels tight. She states that she did do a breathing treatment around 11:30pm, she states it didn' t seem to help. She states that she does have albuterol at home. She states that her last asthma flare up was in December. She denies being on any maintenance medications. States that she uses her albuterol only intermittently. She denies any sick contacts. She denies use of cigarettes. Patient denies any recent rash, fever, chills, chest pain, abdominal pain, nausea, vomiting, diarrhea, constipation, back pain, numbness, tingling, dizziness, weakness, hematuria, dysuria, urinary urgency, urinary frequency, headache, visual changes , or any other complaints. - Related Data Home Medications Medication Instructions Recorded Confirmed Albuterol Nebulized [Ventolin 2.5 mg INHALATION RT-Q4H PRN 10/24/16 04/23/17 Nebulized] Albuterol Sulfate [Proair Hfa] 2 puff INHALATION RT-Q4H PRN 10/24/16 04/23/17 Loratadine [Claritin] 10 mg PO DAILY 10/24/16 04/23/17 Ranitidine HCl [Zantac] 150 mg PO BID 10/24/16 04/23/17 Ibuprofen [Advil] 200 mg PO Q8HR PRN 11/09/16 04/23/17 Previous Rx's Medication Instructions Recorded CHLORPHEN-HYDROcod 8-10mg/5ml 5 ml PO Q12HR #50 ml 04/23/17 [Tussionex] Ipratropium-Albuterol Nebulize 3 ml INHALATION Q4H PRN #60 neb 04/23/17 [Duoneb 0.5 mg-3 mg/3 ml Soln] predniSONE 50 mg PO DAILY #5 tab 04/23/17 Allergies Allergy/AdvReac Type Severity Reaction Status Date / Time clindamycin Allergy Rash/Hives Verified 04/23/17 00:41 iodine Allergy Anaphylaxis Verified 04/23/17 00:41 peanut Allergy Anaphylaxis Verified 04/23/17 00:41 Penicillins Allergy Anaphylaxis Verified 04/23/17 00:41 shellfish derived Allergy Anaphylaxis Verified 04/23/17 00:41 sulfamethoxazole Allergy Rash/Hives Verified 04/23/17 00:41 [From Bactrim] tetracycline Allergy Rash/Hives Verified 04/23/17 00:41 trimethoprim [From Bactrim] Allergy Rash/Hives Verified 04/23/17 00:41 lactose AdvReac Nausea Verified 04/23/17 00:41 oranges Allergy Anaphylaxis Uncoded 04/23/17 00:41 eggs AdvReac Rash/Hives Uncoded 04/23/17 00:41 Review of Systems ROS Statement: Those systems with pertinent positive or pertinent negative responses have been documented in the HPI. ROS Other: All systems not noted in ROS Statement are negative. Past Medical History Past Medical History: Asthma, GERD/Reflux, Pneumonia Additional Past Medical History / Comment(s): hernia, hypoglycemia History of Any Multi-Drug Resistant Organisms: None Reported Past Surgical History: Appendectomy Additional Past Surgical History / Comment(s): ovarian Past Anesthesia/Blood Transfusion Reactions: No Reported Reaction Past Psychological History: No Psychological Hx Reported Smoking Status: Former smoker Past Alcohol Use History: Occasional Past Drug Use History: None Reported - Past Family History Mother Family Medical History: Chest Pain / Angina, COPD, Coronary Artery Disease (CAD) Father Family Medical History: Hypertension General Exam Limitations: no limitations General appearance: alert, in no apparent distress, other (This is a well- developed, well-nourished adult female patient in no acute distress. Vital signs upon presentation were temperature 90.8F, pulse 89, respirations 20, blood pressure 171/84, pulse ox 96% on room air.) ENT exam: Present: normal exam, normal oropharynx, mucous membranes moist, TM's normal bilaterally Neck exam: Present: normal inspection. Absent: tenderness, meningismus, lymphadenopathy Respiratory exam: Present: normal lung sounds bilaterally, wheezes (Tight expiratory wheezing noted in all posterior lung rousseau.), other (Respirations are even and unlabored, patient is tachypneic.). Absent: respiratory distress, rales, rhonchi, stridor, chest wall tenderness, accessory muscle use Cardiovascular Exam: Present: regular rate, normal rhythm, normal heart sounds. Absent: systolic murmur, diastolic murmur, rubs, gallop, clicks GI/Abdominal exam: Present: soft, normal bowel sounds. Absent: distended, tenderness, guarding, rebound, rigid Neurological exam: Present: alert, oriented X3, CN II-XII intact Psychiatric exam: Present: normal affect, normal mood Skin exam: Present: warm, dry, intact, normal color. Absent: rash Course Vital Signs 04/23/17 04/23/17 04/23/17 00:39 01:14 02:34 Temperature 98 F 96.9 F L Pulse Rate 89 88 65 Respiratory 20 18 Rate Blood Pressure 171/84 151/78 O2 Sat by Pulse 96 97 Oximetry Medical Decision Making - Medical Decision Making 47-year-old female patient presented for evaluation of cough, wheezing, shortness of breath. Patient is concerned that her asthma may be worsening. Physical examination did reveal tight expiratory wheezing in all posterior lung rousseau. Chest x-ray was negative for any acute process, it did show a calcified granuloma in the right lung. She did receive Solu-Medrol IM, DuoNeb, and Tessalon Perles here in the department. She states that her symptoms are somewhat improved, she feels she is breathing easier. Reexamination did reveal that her lungs were now clear, with good air movement. She will be discharged home with a prescription for prednisone, DuoNeb, and Tussionex to take at night. She is instructed to follow-up with her primary care physician as she has planned this morning. She is instructed to return here immediately for any new, worsening, or concerning symptoms. Patient was informed of all findings including the calcified granuloma in the right lung, she was already aware of this, she was given a copy of the x-ray report to take with her to her primary care physician for follow-up. All of her questions were answered. She verbalizes understanding and agrees with this plan. - Radiology Data Radiology results: report reviewed, image reviewed Two-view x-ray of the chest shows a heart and mediastinum are normal. Lungs are clear. Costophrenic angles are clear. There is a small calcified granuloma in the periphery of the right mid lung. There is no evidence of pleural effusion. Bony thorax is intact. Impression by Dr. Morales shows no active cardiopulmonary disease. No change. Disposition Clinical Impression: Asthma exacerbation, Viral upper respiratory illness, Calcified granuloma of lung Disposition: HOME SELF-CARE Condition: Good Instructions: Asthma (ED), Viral Syndrome (ED) Additional Instructions: Take medication as directed. Do DuoNeb breathing treatments every 4-6 hours as needed. Complete steroid prescription in full. Follow-up with your primary care physician for recheck in 1-2 days. Return here immediately for any new, worsening, or concerning symptoms. Prescriptions: CHLORPHEN-HYDROcod 8-10mg/5ml [Tussionex] 5 ml PO Q12HR #50 ml Ipratropium-Albuterol Nebulize [Duoneb 0.5 mg-3 mg/3 ml Soln] 3 ml INHALATION Q4H PRN #60 neb PRN Reason: Wheezing predniSONE 50 mg PO DAILY #5 tab Referrals: Kwasi Santiago MD [Primary Care Provider] - 1-2 days Time of Disposition: 02:09
[2017-04-23 02:46] VITALS: BP 151/78; PULSE 65; RESP 18; TEMP 96.9
== END 2017-04-23 02:34 | disposition home or self-care (01) ==
LOC: EC 00:35
DX: J45.901 Unspecified asthma with (acute) exacerbation (principal); J84.10 Pulmonary fibrosis, unspecified; B34.9 Viral infection, unspecified; K21.9 Gastro-esophageal reflux disease without esophagitis; Z87.891 Personal history of nicotine dependence; Z79.899 Other long term (current) drug therapy; Z88.1 Allergy status to other antibiotic agents; Z91.048 Other nonmedicinal substance allergy status; Z91.010 Allergy to peanuts; Z91.013 Allergy to seafood; Z88.3 Allergy status to other anti-infective agents; Z91.011 Allergy to milk products; Z91.018 Allergy to other foods; Z91.012 Allergy to eggs; Z88.0 Allergy status to penicillin
CPT/HCPCS: 99283 ×2; 96372 ×2; 94640; 71020; J2930

== ENCOUNTER 2017-10-17 00:26 | Emergency (ER) | payer BC ==
[2017-10-17 00:33] VITALS: RESP 20
[2017-10-17] MEDS ORDERED: IPRATROPIUM-ALBUTEROL 3 ML NEB INHALATION STA (00:42)
--- NOTE | 2017-10-17 00:46 | ED ---
SOB HPI - General Chief Complaint: Shortness of Breath Stated Complaint: SOB Time Seen by Provider: 10/17/17 00:34 Source: patient, RN notes reviewed Mode of arrival: ambulatory - History of Present Illness Initial Comments: This is a 47-year-old female with history of asthma who presents to the emergency department with chief complaint of shortness of breath. Patient states that she has been having an exacerbation of her asthma since Saturday. She states that over the last 2 days her shortness of breath has become worse. She states that she has been using nebulizer breathing treatments 4 times yesterday and 2 or 3 times today. She states that she has been using her rescue albuterol inhaler at least 3 times per day. She does admit to associated cough and chills. She states that earlier today while at work she experienced left-sided chest pain that was sharp in nature and radiated to her back. She denies any fevers, abdominal pain, nausea or vomiting, diarrhea or constipation. - Related Data Home Medications Medication Instructions Recorded Confirmed Albuterol Nebulized [Ventolin 2.5 mg INHALATION RT-Q4H PRN 10/24/16 04/23/17 Nebulized] Albuterol Sulfate [Proair Hfa] 2 puff INHALATION RT-Q4H PRN 10/24/16 04/23/17 Loratadine [Claritin] 10 mg PO DAILY 10/24/16 04/23/17 Ranitidine HCl [Zantac] 150 mg PO BID 10/24/16 04/23/17 Ibuprofen [Advil] 200 mg PO Q8HR PRN 11/09/16 04/23/17 Previous Rx's Medication Instructions Recorded CHLORPHEN-HYDROcod 8-10mg/5ml 5 ml PO Q12HR #50 ml 04/23/17 [Tussionex] Ipratropium-Albuterol Nebulize 3 ml INHALATION Q4H PRN #60 neb 04/23/17 [Duoneb 0.5 mg-3 mg/3 ml Soln] predniSONE 50 mg PO DAILY #5 tab 04/23/17 predniSONE 20 mg PO BID #10 tab 10/17/17 Allergies Allergy/AdvReac Type Severity Reaction Status Date / Time clindamycin Allergy Rash/Hives Verified 04/23/17 00:41 iodine Allergy Anaphylaxis Verified 04/23/17 00:41 peanut Allergy Anaphylaxis Verified 04/23/17 00:41 Penicillins Allergy Anaphylaxis Verified 04/23/17 00:41 shellfish derived Allergy Anaphylaxis Verified 04/23/17 00:41 sulfamethoxazole Allergy Rash/Hives Verified 04/23/17 00:41 [From Bactrim] tetracycline Allergy Rash/Hives Verified 04/23/17 00:41 trimethoprim [From Bactrim] Allergy Rash/Hives Verified 04/23/17 00:41 lactose AdvReac Nausea Verified 04/23/17 00:41 oranges Allergy Anaphylaxis Uncoded 04/23/17 00:41 eggs AdvReac Rash/Hives Uncoded 04/23/17 00:41 Review of Systems ROS Statement: Those systems with pertinent positive or pertinent negative responses have been documented in the HPI. ROS Other: All systems not noted in ROS Statement are negative. Past Medical History Past Medical History: Asthma, GERD/Reflux, Pneumonia Additional Past Medical History / Comment(s): hernia, hypoglycemia History of Any Multi-Drug Resistant Organisms: None Reported Past Surgical History: Appendectomy Additional Past Surgical History / Comment(s): ovarian Past Anesthesia/Blood Transfusion Reactions: No Reported Reaction Past Psychological History: No Psychological Hx Reported Smoking Status: Former smoker Past Alcohol Use History: Rare Past Drug Use History: None Reported - Past Family History Mother Family Medical History: Chest Pain / Angina, COPD, Coronary Artery Disease (CAD) Father Family Medical History: Hypertension Course Vital Signs 10/17/17 10/17/17 10/17/17 00:29 00:49 00:59 Temperature 97.9 F Pulse Rate 70 76 80 Respiratory 20 Rate Blood Pressure 178/77 O2 Sat by Pulse 95 Oximetry Medical Decision Making - Medical Decision Making This is a 47-year-old female with history of asthma who presents to the emergency department with chief complaint of shortness of breath and cough. Patient also admits to an episode of sharp chest pain earlier today. EKG revealed normal sinus rhythm. Chest x-ray revealed no acute abnormalities. CBC , CMP, coags were unremarkable. Troponin and d-dimer were negative. Patient was given DuoNeb and Solu-Medrol while in the emergency department. Patient is in no respiratory distress and has unlabored breathing. Vital signs are stable and she is in no acute distress. She will be discharged home with prescription for prednisone for the next 5 days. Recommended follow-up with primary care provider. Patient is in agreement with plan and voices understanding. All questions were answered. - Lab Data Result diagrams: 10/17/17 01:14 10/17/17 01:14 Lab Results 10/17/17 10/17/17 10/17/17 Range/Units 01:14 01:14 01:14 WBC 7.2 (3.8-10.6) k/uL RBC 4.87 (3.80-5.40) m/uL Hgb 15.4 (11.4-16.0) gm/dL Hct 43.0 (34.0-46.0) % MCV 88.3 (80.0-100.0) fL MCH 31.5 (25.0-35.0) pg MCHC 35.7 (31.0-37.0) g/dL RDW 12.5 (11.5-15.5) % Plt Count 319 (150-450) k/uL Neutrophils % 39 % Lymphocytes % 42 % Monocytes % 5 % Eosinophils % 10 % Basophils % 1 % Neutrophils # 2.8 (1.3-7.7) k/uL Lymphocytes # 3.0 (1.0-4.8) k/uL Monocytes # 0.3 (0-1.0) k/uL Eosinophils # 0.7 (0-0.7) k/uL Basophils # 0.1 (0-0.2) k/uL PT (9.0-12.0) sec INR (<1.2) APTT (22.0-30.0) sec D-Dimer (<0.60) mg/L FEU Sodium 143 (137-145) mmol/L Potassium 3.8 (3.5-5.1) mmol/L Chloride 104 (98-107) mmol/L Carbon Dioxide 24 (22-30) mmol/L Anion Gap 15 mmol/L BUN 17 (7-17) mg/dL Creatinine 0.80 (0.52-1.04) mg/dL Est GFR (CKD-EPI)AfAm >90 (>60 ml/min/1.73 sqM) Est GFR (CKD-EPI)NonAf 88 (>60 ml/min/1.73 sqM) Glucose 99 (74-99) mg/dL Calcium 10.0 (8.4-10.2) mg/dL Total Bilirubin 0.4 (0.2-1.3) mg/dL AST 21 (14-36) U/L ALT 29 (9-52) U/L Alkaline Phosphatase 112 (38-126) U/L Total Creatine Kinase 79 (30-135) U/L CK-MB (CK-2) 1.2 (0.0-2.4) ng/mL CK-MB (CK-2) Rel Index 1.5 Troponin I <0.012 (0.000-0.034) ng/mL Total Protein 7.3 (6.3-8.2) g/dL Albumin 4.5 (3.5-5.0) g/dL 10/17/17 Range/Units 01:14 WBC (3.8-10.6) k/uL RBC (3.80-5.40) m/uL Hgb (11.4-16.0) gm/dL Hct (34.0-46.0) % MCV (80.0-100.0) fL MCH (25.0-35.0) pg MCHC (31.0-37.0) g/dL RDW (11.5-15.5) % Plt Count (150-450) k/uL Neutrophils % % Lymphocytes % % Monocytes % % Eosinophils % % Basophils % % Neutrophils # (1.3-7.7) k/uL Lymphocytes # (1.0-4.8) k/uL Monocytes # (0-1.0) k/uL Eosinophils # (0-0.7) k/uL Basophils # (0-0.2) k/uL PT 10.2 (9.0-12.0) sec INR 1.0 (<1.2) APTT 24.9 (22.0-30.0) sec D-Dimer 0.19 (<0.60) mg/L FEU Sodium (137-145) mmol/L Potassium (3.5-5.1) mmol/L Chloride (98-107) mmol/L Carbon Dioxide (22-30) mmol/L Anion Gap mmol/L BUN (7-17) mg/dL Creatinine (0.52-1.04) mg/dL Est GFR (CKD-EPI)AfAm (>60 ml/min/1.73 sqM) Est GFR (CKD-EPI)NonAf (>60 ml/min/1.73 sqM) Glucose (74-99) mg/dL Calcium (8.4-10.2) mg/dL Total Bilirubin (0.2-1.3) mg/dL AST (14-36) U/L ALT (9-52) U/L Alkaline Phosphatase (38-126) U/L Total Creatine Kinase (30-135) U/L CK-MB (CK-2) (0.0-2.4) ng/mL CK-MB (CK-2) Rel Index Troponin I (0.000-0.034) ng/mL Total Protein (6.3-8.2) g/dL Albumin (3.5-5.0) g/dL 10/17/17 0:53:32. Normal sinus rhythm, ventricular rate 63 bpm, WV interval 130 , QRS duration 92, QT/QTc 426/435 - Radiology Data Radiology results: report reviewed Chest x-ray impression: Unremarkable chest x-ray. No evidence for effusions or infiltrates. Cardiac silhouette is within normal limits. Mild chronic interstitial changes. Disposition Clinical Impression: Acute asthma exacerbation Disposition: HOME SELF-CARE Condition: Good Instructions: Asthma (ED) Additional Instructions: Please take medications as prescribed. Please follow up with primary care provider within 1-2 days. Return to emergency department if symptoms should worsen or any concerns arise. Prescriptions: predniSONE 20 mg PO BID #10 tab Referrals: Kwasi Santiago MD [Primary Care Provider] - 1-2 days Time of Disposition: 02:03
[2017-10-17 01:22] LABS: Basophils # (A) 0.1 k/uL (0-0.2); Basophils % (A) 1 %; Eosinophils # (A) 0.7 k/uL (0-0.7); Eosinophils % (A) 10 %; HGB 15.4 gm/dL (11.4-16.0); Lymphocytes % (A) 42 %; MCH 31.5 pg (25.0-35.0); MCHC 35.7 g/dL (31.0-37.0); MCV 88.3 fL (80.0-100.0); Mean Platelet Volume 6.4; Monocytes # (A) 0.3 k/uL (0-1.0); Monocytes % (A) 5 %; Neutrophils # (A) 2.8 k/uL (1.3-7.7); Neutrophils % (A) 39 %; Platelet Count 319 k/uL (150-450); RBC 4.87 m/uL (3.80-5.40); RDW 12.5 % (11.5-15.5); WBC 7.2 k/uL (3.8-10.6)
[2017-10-17 01:31] LABS: ALT 29 U/L (9-52); AST 21 U/L (14-36); Albumin 4.5 g/dL (3.5-5.0); Alkaline Phosphatase 112 U/L (38-126); Anion Gap 15 mmol/L; Blood Urea Nitrogen 17 mg/dL (7-17); Carbon Dioxide 24 mmol/L (22-30); Chloride 104 mmol/L (98-107); Glucose 99 mg/dL (74-99); Potassium 3.8 mmol/L (3.5-5.1); Sodium 143 mmol/L (137-145); Total Bilirubin 0.4 mg/dL (0.2-1.3); Total Protein 7.3 g/dL (6.3-8.2)
[2017-10-17 01:36] LABS: D-Dimer 0.19 mg/L FEU (<0.60); Partial Thromboplastin Time 24.9 sec (22.0-30.0); Prothrombin Time 10.2 sec (9.0-12.0)
[2017-10-17 01:42] LABS: Creatine Kinase 79 U/L (30-135)
--- NOTE | 2017-10-17 01:53 | XR ---
EXAM: XR Chest, 2 Views CLINICAL HISTORY: dyspnea TECHNIQUE: Frontal and lateral views of the chest. COMPARISON: No relevant prior studies available. Findings: Cardiac silhouette is within normal limits. No evidence for effusions or infiltrates. Mild chronic interstitial changes IMPRESSION: Unremarkable chest x-ray
[2017-10-17 01:55] LABS: Creatine Kinase MB 1.2 ng/mL (0.0-2.4); Troponin I <0.012 ng/mL (0.000-0.034)
[2017-10-17] MEDS ORDERED: methylPREDNISolone SOD SUCCI 125 MG/2 ML VIAL IV STA (01:58)
[2017-10-17 02:19] VITALS: BP 138/91; PULSE 72; TEMP 97.7
== END 2017-10-17 02:18 | disposition home or self-care (01) ==
LOC: EC 00:26
DX: J45.901 Unspecified asthma with (acute) exacerbation (principal); K21.9 Gastro-esophageal reflux disease without esophagitis; Z87.891 Personal history of nicotine dependence; Z87.01 Personal history of pneumonia (recurrent); Z79.899 Other long term (current) drug therapy; Z88.0 Allergy status to penicillin; Z88.1 Allergy status to other antibiotic agents; Z88.2 Allergy status to sulfonamides; Z91.011 Allergy to milk products; Z91.012 Allergy to eggs; Z91.013 Allergy to seafood; Z91.018 Allergy to other foods; Z91.048 Other nonmedicinal substance allergy status
CPT/HCPCS: 36415; 94640; 93005; 85379; 80053; 82550; 82553; 84484; 85025; 85610; 85730; 71046; 99285; 96374; J2930

== ENCOUNTER 2018-02-05 08:59 | Day surgery (SDC) | payer BC ==
[2018-01-31 10:45] VITALS: BMI 23.8
[~2018-02-05 08:59] MED LIST: LACTATED RINGERS 1,000 ML IV SCH; LIDOCAINE 1% 20 ML VIAL (10MG/ML) FOR IV START INTRADERMA PRN
[2018-02-05 09:51] LABS: Glucose,Whole Blood 94 mg/dL (75-99)
[2018-02-05 09:52] VITALS: TEMP 97
[2018-02-05] MEDS ORDERED: LIDOCAINE 1% INJ 10MG/ML (20 ML MDV) ONE (10:02)
[2018-02-05] MEDS ORDERED: PROPOFOL 10 MG/ML 20 ML VIAL IV ONE (10:02)
--- NOTE | 2018-02-05 10:12 | P.PCN ---
Date of Procedure: 02/05/18 Procedure(s) Performed: BRIEF HISTORY: Patient is a 47-year-old, pleasant, white female, scheduled for an elective colonoscopy as a part of evaluation of progressive dysphagia to solids for the last 2 years duration. Her last 6 months symptoms have been almost on a daily basis. She did have a barium esophagogram done in June 2017 that showed a distal esophageal stricture with proximal dilation. Because of the worsening symptoms she is scheduled for an upper endoscopy with possible dilation today.. PROCEDURE PERFORMED: Esophagogastroduodenoscopy. PREOPERATIVE DIAGNOSIS: Progressive dysphagia to solids of 6 months duration. IV sedation per anesthesia. PROCEDURE: After informed consent was obtained, the patient was brought into the endoscopy unit. IV sedation was administered by Anesthesia under continuous monitoring. Initially the Olympus GIF-140 video endoscope was inserted into the mouth. Esophagus intubated without any difficulty. It was gradually advanced into the stomach and duodenum and carefully examined. The bulb and the second part of the duodenum appeared normal. The scope at this time was withdrawn to the stomach, adequately insufflated with air, and upon careful examination, mucosa of the antrum, body, cardia and the fundus appeared normal. The scope was then withdrawn into the esophagus. Small hiatal hernia noted. The GE junction was located at 35 cm from the incisors. There was circumferential ulceration of the GE junction as well as multiple superficial erosions or ulcerations in the distal esophagus consistent with LA grade C reflux esophagitis. The rest of the esophagus appeared normal and the patient tolerated the procedure well. IMPRESSION: 1. Circumferential ulceration at the GE junction and several erosions in the distal esophagus consistent with LA grade C reflux esophagitis. 2. Early distal esophageal stricture. 3. Small hiatal hernia. RECOMMENDATIONS: The findings of this examination were discussed with the patient as well as a family. She will be started on Prilosec 20 mg twice daily half hour before breakfast and dinner and follow antireflux measures. She'll be seen in the office in 3 months. If she still has persistent dysphagia that time will plan on an upper endoscopy with dilation.\.
[2018-02-05 10:19] VITALS: RESP 18
[2018-02-05 10:43] VITALS: PULSE 78
[2018-02-05 10:54] VITALS: BP 161/80
== END 2018-02-05 11:05 | disposition home or self-care (01) ==
LOC: ORWHC2ENDO 08:59
PROVIDERS: ATTEND Internal Medicine Gastroenterology
DX: K22.2 Esophageal obstruction (principal); K22.10 Ulcer of esophagus without bleeding; K21.0 Gastro-esophageal reflux disease with esophagitis; K44.9 Diaphragmatic hernia without obstruction or gangrene; J44.9 Chronic obstructive pulmonary disease, unspecified; I49.9 Cardiac arrhythmia, unspecified; Z79.51 Long term (current) use of inhaled steroids; Z79.899 Other long term (current) drug therapy; Z79.1 Long term (current) use of non-steroidal anti-inflammatories (NSAID)
CPT/HCPCS: 81025; 43235; J2001; J2704

== ENCOUNTER 2018-07-03 08:26 | Day surgery (SDC) | payer BC ==
[2018-07-02 09:17] VITALS: BMI 23.8
[~2018-07-03 08:26] MED LIST changes: +DEXAMETHASONE SOD PHOSPHATE 10 MG/ML 1 ML VIAL IV ONE; +HYDROmorphone 0.5 MG/0.5 ML SYRINGE IVP PRN; +ONDANSETRON 4 MG/2 ML VIAL IVP ONE; +SCOPOLAMINE 1.5MG/72HR PATCH TRANSDERM ONE
[2018-07-03 09:45] VITALS: TEMP 98.1
[2018-07-03] MEDS ORDERED: ALBUTEROL NEBULIZED 2.5 MG/3 ML INHALATION STA (10:11)
[2018-07-03] MEDS ORDERED: PROPOFOL 10 MG/ML 20 ML VIAL IV ONE (10:31)
[2018-07-03] MEDS ORDERED: LIDOCAINE 1% INJ 10MG/ML (20 ML MDV) ONE (10:31)
[2018-07-03] MEDS ORDERED: GLYCOPYRROLATE 0.2 MG/ML 2 ML VIAL ONE (10:31)
--- NOTE | 2018-07-03 10:45 | P.PCN ---
Date of Procedure: 07/03/18 Procedure(s) Performed: BRIEF HISTORY: Patient is a 48-year-old, pleasant, female scheduled for an upper endoscopy with possible dilation as part of evaluation of dysphagia to solids for the last several months duration. She underwent upper endoscopy in February 2018 and was noted to have severe LA grade C reflux esophagitis. She has been on Prilosec 20 mg twice daily since then and heartburn has resolved. Because of the persistent dysphagia she is scheduled for upper endoscopy with dilation today. PROCEDURE PERFORMED: Esophagogastroduodenoscopy with dilation and biopsy. PREOPERATIVE DIAGNOSIS: Progressive dysphagia to solids. IV sedation per anesthesia. PROCEDURE: After informed consent was obtained, the patient was brought into the endoscopy unit. IV sedation was administered by Anesthesia under continuous monitoring. Initially the Olympus GIF-140 video endoscope was inserted into the mouth. Esophagus intubated without any difficulty. It was gradually advanced into the stomach and duodenum and carefully examined. The bulb and the second part of the duodenum appeared normal. The scope at this time was withdrawn to the stomach, adequately insufflated with air, and upon careful examination, mucosa of the antrum, body, cardia and the fundus appeared normal. The scope was then withdrawn into the esophagus. Small sliding Hiatal hernia noted. The GE junction was located at 39 cm from the incisors. There was early distal esophageal stricture identified which did not impede the passage of the scope. At this time I proceeded with a balloon dilation using 18-20 mm TTS balloon for total of 90 seconds a sequential fashion. The rest of the esophagus appeared normal. There were no erosions or ulcerations seen, biopsies were done from the distal esophagus and the patient tolerated the procedure well. IMPRESSION: 1. Distal esophageal early stricture status post balloon dilation using 18-20 mm TTS balloon as described above. 2. Small Hiatal hernia. RECOMMENDATIONS: The findings of this examination were discussed with the patient as well as her family. She was advised to follow with the biopsy results. She'll remain on a clear liquid diet for lunch today. She will continue with omeprazole 20 mg daily and follow antireflux measures and she'll be seen in office in 3 months.
[2018-07-03 11:02] VITALS: BP 142/90; PULSE 90; RESP 18
== END 2018-07-03 11:57 | disposition home or self-care (01) ==
LOC: ORWHC2ENDO 08:26
PROVIDERS: ATTEND Internal Medicine Gastroenterology
DX: K22.2 Esophageal obstruction (principal); K44.9 Diaphragmatic hernia without obstruction or gangrene; K21.9 Gastro-esophageal reflux disease without esophagitis; J45.909 Unspecified asthma, uncomplicated; I25.10 Atherosclerotic heart disease of native coronary artery without angina pectoris; G43.909 Migraine, unspecified, not intractable, without status migrainosus; K58.9 Irritable bowel syndrome, unspecified; Z79.1 Long term (current) use of non-steroidal anti-inflammatories (NSAID); Z79.899 Other long term (current) drug therapy; Z79.51 Long term (current) use of inhaled steroids; Z88.1 Allergy status to other antibiotic agents; Z88.0 Allergy status to penicillin; Z91.09 Other allergy status, other than to drugs and biological substances; Z88.2 Allergy status to sulfonamides; Z88.8 Allergy status to other drugs, medicaments and biological substances; Z91.011 Allergy to milk products; Z91.010 Allergy to peanuts; Z91.013 Allergy to seafood; Z91.040 Latex allergy status; Z91.012 Allergy to eggs
CPT/HCPCS: 94640; 81025; 88305; 43239; 43249; J2001; J2704; C1726

== ENCOUNTER → 2018-07-21 | Outpatient (CLI) | payer BC ==
--- NOTE | 2018-07-22 07:17 | CT ---
EXAMINATION TYPE: CT chest wo con DATE OF EXAM: 07/21/2018 COMPARISON: 05/03/2017 HISTORY: 48-year-old female other disorders of lung, history of pneumonia, nodule. TECHNIQUE: Contiguous axial scanning of the chest without IV contrast. Coronal and sagittal reconstru ctions performed. CT DLP: 185.80 mGycm Automated exposure control for dose reduction was used. FINDINGS: Heart is normal size without pericardial effusion. Coronary vessel calcifications are present in consuelo rkable for coronary artery disease. Aorta normal caliber with variant direct takeoff of the left vertebral artery directly from the aorti c arch. Scattered nonenlarged axillary and mediastinal lymph nodes are demonstrated. Assessment of hilar stru ctures limited due to lack of IV contrast. There is moderate centrilobular emphysema and strandy scarring or atelectasis anterior right midlung. Additional strandy scarring or atelectasis medial right middle lobe and inferior lingula. -Punctate 3 mm pulmonary nodule posteromedial right base axial image 55 is unchanged. -Punctate 3 mm pulmonary nodule posterior right base, axial image 52 is unchanged, suspected to be ca lcified. -A couple additional calcified granulomas in the right lower lobe, axial image 41 and 34 are unchange d, measuring up to 6 mm. -Punctate 2 mm posterior left midlung pulmonary nodule is unchanged. No consolidation or pleural effusion. Small hiatal hernia. Visualized upper abdomen shows a stable 3.3 cm cyst posterior left kidney. Bones: There are mild endplate spondylosis mid to lower thoracic spine. No osseous destructive proces s. IMPRESSION: 1. COPD WITH MODERATE EMPHYSEMA. SCATTERED STRANDY AREAS OF ATELECTASIS AND/OR SCARRING. 2. SCATTERED PULMONARY NODULES MEASURING UP TO 6 MM, MOST OF WHICH REPRESENT CALCIFIED GRANULOMAS. AL L OF THESE ARE STABLE COMPATIBLE WITH A BENIGN ETIOLOGY. 3. SMALL HIATAL HERNIA.
== END ==
LOC: RADCTMAIN 15:05
PROVIDERS: ATTEND Family Medicine
DX: J43.9 Emphysema, unspecified (principal); J84.10 Pulmonary fibrosis, unspecified; K44.9 Diaphragmatic hernia without obstruction or gangrene; R91.8 Other nonspecific abnormal finding of lung field
CPT/HCPCS: 71250

== ENCOUNTER 2018-09-13 23:46 | Emergency (ER) | payer BC ==
--- NOTE | 2018-09-14 00:34 | ED ---
General Adult HPI - General Chief complaint: Shortness of Breath Stated complaint: SOB/Hx Asthma Time Seen by Provider: 09/14/18 00:03 Source: patient Mode of arrival: wheelchair Limitations: no limitations - History of Present Illness Initial comments: Dictation was produced using [employer] dictation software. please excuse any grammatical, word or spelling errors. Chief Complaint: 48-year-old female presents with cough, shortness of breath, rhinorrhea. History of Present Illness: 48-year-old female presents with cough, shortness of breath and rhinorrhea patient reports she had the symptoms for approximately 3 weeks. Patient states she felt like her symptoms initially started several weeks ago. She was sick for about a week completed a course of antibiotics and steroids and breathing treatment. Patient then reports that her symptoms improved. She did travel to [place] and traveling back. Patient recently has got back. Patient states she had a direct flight. No history of blood clots. No lower extremity symptoms. Denies any constitutional symptoms. Patient states she does have intermittent productive cough but most of the time is nonproductive. Patient does have breathing treatments. The ROS documented in this emergency department record has been reviewed and confirmed by me. Those systems with pertinent positive or negative responses have been documented in the HPI. All other systems are other negative and/or noncontributory. PHYSICAL EXAM: General Impression: Alert and oriented x3, not in acute distress HEENT: Normocephalic atraumatic, extra-ocular movements intact, pupils equal and reactive to light bilaterally, mucous membranes moist. Cardiovascular: Heart regular rate and rhythm, S1&S2 audible, no murmurs, rubs or gallops Chest: Lungs clear to auscultation bilaterally, no rhonchi, no wheeze, no rales Abdomen: Bowel sounds present, abdomen soft, non-tender, non-distended, no organomegaly Musculoskeletal: Pulses present and equal in all extremities, no peripheral edema Motor: Power 5/5 bilaterally, no focal deficits noted Neurological: CN II-XII grossly intact, no focal motor or sensory deficits noted Skin: Intact with no visualized rashes Psych: Normal affect and mood ED course: 48 Year old female with chief complaint of dyspnea, URI type symptoms. Vital signs upon arrival shows heart rate of 110, 93% on room air.Laboratory evaluation obtained. CBC, d-dimer, metabolic panel is unremarkable. Chest x-ray is unremarkable. Patient does have some mild wheezing on auscultation of the lungs. Patient just completed a course of Medrol Dosepak and antibiotics. Patient given 1 dose of Decadron here. She appears well. She is concerned about coughing. She has Franco Bateman at home is told to continue taking these for cough relief. Patient given referral to p ulmonology for outpatient management of lung symptoms. Has persistent cough secondary to viral URI. - Related Data Home Medications Medication Instructions Recorded Confirmed Albuterol Nebulized [Ventolin 2.5 mg INHALATION Q4HR PRN 10/24/16 07/03/18 Nebulized] Albuterol Sulfate [Proair Hfa] 2 puff INHALATION Q4HR PRN 10/24/16 07/03/18 Ibuprofen [Advil] 600 mg PO Q8HR PRN 11/09/16 07/03/18 Cholecalciferol [Vitamin D3] 800 unit PO DAILY 01/31/18 07/03/18 Levocetirizine Dihydrochloride 5 mg PO HS PRN 01/31/18 07/03/18 [Xyzal] Fluticasone/Salmeterol [Advair 1 inhalation PO BID 07/02/18 07/03/18 250-50 Diskus] Omeprazole [PriLOSEC] 20 mg PO AC-BID 07/02/18 07/03/18 Allergies Allergy/AdvReac Type Severity Reaction Status Date / Time clindamycin Allergy Rash/Hives Verified 09/13/18 23:59 iodine Allergy Anaphylaxis Verified 09/13/18 23:59 latex Allergy rash, Verified 09/13/18 23:59 burning, itching peanut Allergy Anaphylaxis Verified 09/13/18 23:59 Penicillins Allergy Anaphylaxis Verified 09/13/18 23:59 prochlorperazine Allergy Unknown Verified 09/13/18 23:59 [From Compazine] shellfish derived Allergy Anaphylaxis Verified 09/13/18 23:59 sulfamethoxazole Allergy Rash/Hives Verified 09/13/18 23:59 [From Bactrim] tetracycline Allergy Rash/Hives Verified 09/13/18 23:59 trimethoprim [From Bactrim] Allergy Rash/Hives Verified 09/13/18 23:59 lactose AdvReac Nausea Verified 09/13/18 23:59 nickel AdvReac Rash/Hives Verified 09/13/18 23:59 oranges Allergy Anaphylaxis Uncoded 09/13/18 23:59 eggs AdvReac Rash/Hives Uncoded 09/13/18 23:59 Review of Systems ROS Statement: Those systems with pertinent positive or pertinent negative responses have been documented in the HPI. ROS Other: All systems not noted in ROS Statement are negative. 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 Holman esophageal stretching Past Anesthesia/Blood Transfusion Reactions: Family History of Problems w/ Anesthesia, Motion Sickness, Postoperative Nausea & Vomiting (PONV) Additional Past Anesthesia/Blood Transfusion Reaction / Comment(s): reaction at dentist office-"vomiting and tingling", dad is "allergic to anesthesia"-not sure what happen Past Psychological History: No Psychological Hx Reported Smoking Status: Former smoker Past Alcohol Use History: Rare Past Drug Use History: None Reported - Past Family History Mother Family Medical History: Deep Vein Thrombosis (DVT) Father Family Medical History: Hypertension General Exam Limitations: no limitations Course Vital Signs 09/13/18 09/14/18 23:52 03:25 Temperature 97.7 F Pulse Rate 110 H 80 Respiratory 20 20 Rate Blood Pressure 168/90 161/95 O2 Sat by Pulse 93 L 94 L Oximetry Medical Decision Making - Lab Data Result diagrams: 09/14/18 00:44 09/14/18 00:44 Lab Results 09/14/18 09/14/18 09/14/18 Range/Units 00:44 00:44 00:44 WBC 7.5 (3.8-10.6) k/uL RBC 4.64 (3.80-5.40) m/uL Hgb 14.6 (11.4-16.0) gm/dL Hct 43.1 (34.0-46.0) % MCV 92.9 (80.0-100.0) fL MCH 31.5 (25.0-35.0) pg MCHC 33.9 (31.0-37.0) g/dL RDW 13.1 (11.5-15.5) % Plt Count 284 (150-450) k/uL Neutrophils % 49 % Lymphocytes % 30 % Monocytes % 6 % Eosinophils % 12 % Basophils % 1 % Neutrophils # 3.7 (1.3-7.7) k/uL Lymphocytes # 2.2 (1.0-4.8) k/uL Monocytes # 0.5 (0-1.0) k/uL Eosinophils # 0.9 H (0-0.7) k/uL Basophils # 0.1 (0-0.2) k/uL D-Dimer 0.31 (<0.60) mg/L FEU Sodium 142 (137-145) mmol/L Potassium 4.3 (3.5-5.1) mmol/L Chloride 107 (98-107) mmol/L Carbon Dioxide 26 (22-30) mmol/L Anion Gap 9 mmol/L BUN 11 (7-17) mg/dL Creatinine 0.61 (0.52-1.04) mg/dL Est GFR (CKD-EPI)AfAm >90 (>60 ml/min/1.73 sqM) Est GFR (CKD-EPI)NonAf >90 (>60 ml/min/1.73 sqM) Glucose 93 (74-99) mg/dL Calcium 9.7 (8.4-10.2) mg/dL Total Bilirubin 0.4 (0.2-1.3) mg/dL AST 22 (14-36) U/L ALT 39 (9-52) U/L Alkaline Phosphatase 108 (38-126) U/L Total Protein 7.0 (6.3-8.2) g/dL Albumin 4.3 (3.5-5.0) g/dL Disposition Clinical Impression: Cough Disposition: HOME SELF-CARE Condition: Good Is patient prescribed a controlled substance at d/c from ED?: No Referrals: Kwasi Santiago MD [Primary Care Provider] - 1-2 days Juarez Grier MD [STAFF PHYSICIAN] - 1-2 days Time of Disposition: 03:51
[2018-09-14 01:03] LABS: Basophils # (A) 0.1 k/uL (0-0.2); Basophils % (A) 1 %; Eosinophils # (A) 0.9 k/uL (0-0.7); Eosinophils % (A) 12 %; HCT 43.1 % (34.0-46.0); HGB 14.6 gm/dL (11.4-16.0); Lymphocytes # (A) 2.2 k/uL (1.0-4.8); Lymphocytes % (A) 30 %; MCH 31.5 pg (25.0-35.0); MCHC 33.9 g/dL (31.0-37.0); MCV 92.9 fL (80.0-100.0); Mean Platelet Volume 6.5; Monocytes # (A) 0.5 k/uL (0-1.0); Monocytes % (A) 6 %; Neutrophils # (A) 3.7 k/uL (1.3-7.7); Neutrophils % (A) 49 %; Platelet Count 284 k/uL (150-450); RBC 4.64 m/uL (3.80-5.40); RDW 13.1 % (11.5-15.5); WBC 7.5 k/uL (3.8-10.6)
[2018-09-14 01:08] LABS: ALT 39 U/L (9-52); AST 22 U/L (14-36); Albumin 4.3 g/dL (3.5-5.0); Alkaline Phosphatase 108 U/L (38-126); Anion Gap 9 mmol/L; Blood Urea Nitrogen 11 mg/dL (7-17); Calcium 9.7 mg/dL (8.4-10.2); Carbon Dioxide 26 mmol/L (22-30); Chloride 107 mmol/L (98-107); Glucose 93 mg/dL (74-99); Potassium 4.3 mmol/L (3.5-5.1); Sodium 142 mmol/L (137-145); Total Bilirubin 0.4 mg/dL (0.2-1.3)
--- NOTE | 2018-09-14 01:30 | XR ---
EXAM: XR Chest, 2 Views CLINICAL HISTORY: difficulty breathing TECHNIQUE: Frontal and lateral views of the chest. COMPARISON: CT chest from 07-21-18 FINDINGS: Lungs: Unremarkable. No consolidation. 6 mm subpleural granulomatous calcification of right lower lobe is again noted. Pleural space: Unremarkable. No pneumothorax. Heart: Unremarkable. No cardiomegaly. Mediastinum: Unremarkable. Bones/joints: Unremarkable. IMPRESSION: No acute findings or substantial change
[2018-09-14] MEDS ORDERED: DEXAMETHASONE SOD PHOSPHATE 10 MG/ML 1 ML VIAL IV STA (03:48)
[2018-09-14] MEDS ORDERED: IPRATROPIUM-ALBUTEROL 3 ML NEB INHALATION STA (04:17)
[2018-09-14 04:24] VITALS: BP 173/97; RESP 18; TEMP 97.8
[2018-09-14 04:34] VITALS: PULSE 89
== END 2018-09-14 04:40 | disposition home or self-care (01) ==
LOC: EC 23:46
DX: J06.9 Acute upper respiratory infection, unspecified (principal); J45.909 Unspecified asthma, uncomplicated; K21.9 Gastro-esophageal reflux disease without esophagitis; Z79.51 Long term (current) use of inhaled steroids; Z79.899 Other long term (current) drug therapy; Z88.1 Allergy status to other antibiotic agents; Z91.040 Latex allergy status; Z91.048 Other nonmedicinal substance allergy status; Z91.010 Allergy to peanuts; Z88.0 Allergy status to penicillin; Z91.013 Allergy to seafood; Z88.2 Allergy status to sulfonamides; Z88.8 Allergy status to other drugs, medicaments and biological substances; Z91.012 Allergy to eggs; Z91.018 Allergy to other foods; Z87.891 Personal history of nicotine dependence
CPT/HCPCS: 36415; 94640; 85379; 80053; 85025; 71046; 99285; 96374; J1100

== ENCOUNTER 2018-10-21 03:07 | Emergency (ER) | payer BC ==
[2018-10-21] MEDS ORDERED: ALBUTEROL NEBULIZED 2.5 MG/3 ML INHALATION STA (03:33)
[2018-10-21] MEDS ORDERED: methylPREDNISolone SOD SUCCI 125 MG/2 ML VIAL IV STA (03:33)
[2018-10-21] MEDS ORDERED: IPRATROPIUM 0.5 MG/2.5 ML NEBU INHALATION STA (03:33)
[2018-10-21] MEDS ORDERED: BENZONATATE 100 MG CAP PO STA (03:34)
[2018-10-21 03:57] LABS: Basophils % (A) 1 %; Eosinophils # (A) 0.1 k/uL (0-0.7); Eosinophils % (A) 2 %; HCT 41.4 % (34.0-46.0); Lymphocytes # (A) 1.5 k/uL (1.0-4.8); Lymphocytes % (A) 26 %; MCH 31.5 pg (25.0-35.0); MCHC 33.7 g/dL (31.0-37.0); MCV 93.2 fL (80.0-100.0); Mean Platelet Volume 6.4; Monocytes # (A) 0.3 k/uL (0-1.0); Monocytes % (A) 6 %; Neutrophils # (A) 3.6 k/uL (1.3-7.7); Neutrophils % (A) 64 %; Platelet Count 238 k/uL (150-450); RBC 4.44 m/uL (3.80-5.40); RDW 12.8 % (11.5-15.5); WBC 5.6 k/uL (3.8-10.6)
[2018-10-21 04:11] LABS: ALT 35 U/L (9-52); AST 33 U/L (14-36); Albumin 4.3 g/dL (3.5-5.0); Alkaline Phosphatase 94 U/L (38-126); Anion Gap 11 mmol/L; Blood Urea Nitrogen 19 mg/dL (7-17); Calcium 9.3 mg/dL (8.4-10.2); Carbon Dioxide 25 mmol/L (22-30); Chloride 103 mmol/L (98-107); Glucose 94 mg/dL (74-99); Potassium 3.7 mmol/L (3.5-5.1); Sodium 139 mmol/L (137-145); Total Bilirubin 0.4 mg/dL (0.2-1.3); Total Protein 6.6 g/dL (6.3-8.2)
[2018-10-21] MEDS ORDERED: PROMETHAZ-COD 6.25-10 MG/5 ML 5 ML CUP PO STA (04:34)
--- NOTE | 2018-10-21 04:39 | ED ---
General Adult HPI - General Source: patient Mode of arrival: ambulatory Limitations: no limitations <Corina Villavicencio - Last Filed: 10/21/18 05:17> <Charmaine Bliss - Last Filed: 10/21/18 07:23> - General Chief complaint: Upper Respiratory Infection Stated complaint: Cough ANGE Hx Asthma Time Seen by Provider: 10/21/18 03:19 - History of Present Illness Initial comments: 48-year-old female patient presents to the emergency department today for evaluation of cough. Patient states that she has been sick since Saturday with cough. Patient states she is coughing up thick sputum. Patient has history of asthma and does do breathing treatments at home. States that she did go to [facility] for evaluation on Saturday and was prescribed Levaquin, prednisone, and Phenergan with codeine. Patient states she's been taking his medications but she is not getting any better. States she is unable to sleep due to the cough. States that she believes she's had a fever has been chilled. She did not take her temperature. She denies any chest pain but states she does feel short of breath after coughing episodes. Patient denies any recent rash, abdominal pain, nausea, vomiting, diarrhea, constipation, back pain, numbness, tingling, dizziness, weakness, hematuria, dysuria, urinary urgency, urinary frequency, headache, visual changes, or any other complaints. (Corina Villavicencio) - Related Data Home Medications Medication Instructions Recorded Confirmed Albuterol Nebulized [Ventolin 2.5 mg INHALATION Q4HR PRN 10/24/16 09/27/18 Nebulized] Albuterol Sulfate [Proair Hfa] 2 puff INHALATION Q4HR PRN 10/24/16 09/27/18 Ibuprofen [Advil] 600 mg PO Q8HR PRN 11/09/16 09/27/18 Cholecalciferol [Vitamin D3] 800 unit PO DAILY 01/31/18 09/27/18 Levocetirizine Dihydrochloride 5 mg PO HS PRN 01/31/18 09/27/18 [Xyzal] Fluticasone/Salmeterol [Advair 1 inhalation PO BID 07/02/18 09/27/18 250-50 Diskus] Omeprazole [PriLOSEC] 20 mg PO AC-BID 07/02/18 09/27/18 Previous Rx's Medication Instructions Recorded Albuterol Sulfate [Proair Hfa] 1 - 2 puff INHALATION Q4H PRN #1 09/27/18 inhaler predniSONE 50 mg PO DAILY #5 tab 09/27/18 CHLORPHEN-HYDROcod 8-10mg/5ml 5 ml PO Q12HR PRN 3 Days #30 ml 10/21/18 [Tussionex] Allergies Allergy/AdvReac Type Severity Reaction Status Date / Time clindamycin Allergy Rash/Hives Verified 10/21/18 03:15 iodine Allergy Anaphylaxis Verified 10/21/18 03:15 latex Allergy rash, Verified 10/21/18 03:15 burning, itching peanut Allergy Anaphylaxis Verified 10/21/18 03:15 Penicillins Allergy Anaphylaxis Verified 10/21/18 03:15 prochlorperazine Allergy Unknown Verified 10/21/18 03:15 [From Compazine] shellfish derived Allergy Anaphylaxis Verified 10/21/18 03:15 sulfamethoxazole Allergy Rash/Hives Verified 10/21/18 03:15 [From Bactrim] tetracycline Allergy Rash/Hives Verified 10/21/18 03:15 trimethoprim [From Bactrim] Allergy Rash/Hives Verified 10/21/18 03:15 lactose AdvReac Nausea Verified 10/21/18 03:15 nickel AdvReac Rash/Hives Verified 10/21/18 03:15 oranges Allergy Anaphylaxis Uncoded 10/21/18 03:15 eggs AdvReac Rash/Hives Uncoded 10/21/18 03:15 Review of Systems ROS Other: All systems not noted in ROS Statement are negative. <Corina Villavicencio M - Last Filed: 10/21/18 05:17> ROS Other: All systems not noted in ROS Statement are negative. <Charmaine Bliss - Last Filed: 10/21/18 07:23> ROS Statement: Those systems with pertinent positive or pertinent negative responses have been documented in the HPI. 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 Holman esophageal stretching Past Anesthesia/Blood Transfusion Reactions: Family History of Problems w/ Anesthesia, Motion Sickness, Postoperative Nausea & Vomiting (PONV) Additional Past Anesthesia/Blood Transfusion Reaction / Comment(s): reaction at dentist office-"vomiting and tingling", dad is "allergic to anesthesia"-not sure what happen Past Psychological History: No Psychological Hx Reported Smoking Status: Former smoker Past Alcohol Use History: Rare Past Drug Use History: None Reported - Past Family History Mother Family Medical History: Deep Vein Thrombosis (DVT) Father Family Medical History: Hypertension <Corina Villavicencio M - Last Filed: 10/21/18 05:17> General Exam Limitations: no limitations General appearance: alert, in no apparent distress, other (Physical well- developed, well-nourished adult female patient in no acute distress. Vital signs upon presentation are temperature 98.8F, pulse 108, respirations 18, blood pressure 151/79, pulse ox 94% on room air.) Eye exam: Present: normal appearance, PERRL, EOMI. Absent: scleral icterus, conjunctival injection, periorbital swelling ENT exam: Present: normal exam, normal oropharynx, mucous membranes moist Respiratory exam: Present: wheezes (Scattered expiratory wheezing in the posterior lung rousseau). Absent: normal lung sounds bilaterally, respiratory distress, rales, rhonchi, stridor Cardiovascular Exam: Present: regular rate, normal rhythm, normal heart sounds. Absent: systolic murmur, diastolic murmur, rubs, gallop, clicks GI/Abdominal exam: Present: soft, normal bowel sounds. Absent: distended, tenderness, guarding, rebound, rigid Neurological exam: Present: alert, oriented X3, CN II-XII intact Psychiatric exam: Present: normal affect, normal mood Skin exam: Present: warm, dry, intact, normal color. Absent: rash <Corina Villavicencio - Last Filed: 10/21/18 05:17> Course Vital Signs 10/21/18 10/21/18 10/21/18 03:11 03:45 04:14 Temperature 98.8 F Pulse Rate 108 H 98 Respiratory 18 26 H Rate Blood Pressure 151/79 O2 Sat by Pulse 94 L Oximetry 10/21/18 10/21/18 04:17 05:15 Temperature 98.4 F Pulse Rate 117 H 79 Respiratory 24 Rate Blood Pressure 130/78 O2 Sat by Pulse Oximetry Medical Decision Making - Lab Data Result diagrams: 10/21/18 03:40 10/21/18 03:40 - Radiology Data Radiology results: report reviewed, image reviewed <Corina Villavicencio - Last Filed: 10/21/18 05:17> - Lab Data Result diagrams: 10/21/18 03:40 10/21/18 03:40 <Charmaine Bliss - Last Filed: 10/21/18 07:23> - Medical Decision Making 48-year-old female patient presents to the emergency department today for evaluation of persistent cough. Physical examination did reveal scattered expiratory wheezing in the posterior lung rousseau. Patient had persistent cough noted throughout exam and hospital stay. Chest x-ray was reviewed and showed no acute cardiopulmonary process. Labs reviewed and are unremarkable. Patient is already taking prednisone and Levaquin as well as home breathing treatments for symptom relief. Patient will be urged to continue these medications which is instructed to follow up with her primary care physician for recheck in 1-2 days. She is instructed to follow-up with her relocation director. Return parameters were discussed in detail. She verbalizes understanding and agrees with this plan. (Corina Villavicencio) I was available for consultation in the emergency department. The history and physical exam were done by the midlevel provider. I was consulted for this patient's care. I reviewed the case with the midlevel provider and based on their presentation of the patient, I agree with the assessment, medical decision making and plan of care as documented. (Charmaine Bliss) - Lab Data Lab Results 10/21/18 10/21/18 Range/Units 03:40 03:40 WBC 5.6 (3.8-10.6) k/uL RBC 4.44 (3.80-5.40) m/uL Hgb 14.0 (11.4-16.0) gm/dL Hct 41.4 (34.0-46.0) % MCV 93.2 (80.0-100.0) fL MCH 31.5 (25.0-35.0) pg MCHC 33.7 (31.0-37.0) g/dL RDW 12.8 (11.5-15.5) % Plt Count 238 (150-450) k/uL Neutrophils % 64 % Lymphocytes % 26 % Monocytes % 6 % Eosinophils % 2 % Basophils % 1 % Neutrophils # 3.6 (1.3-7.7) k/uL Lymphocytes # 1.5 (1.0-4.8) k/uL Monocytes # 0.3 (0-1.0) k/uL Eosinophils # 0.1 (0-0.7) k/uL Basophils # 0.0 (0-0.2) k/uL Sodium 139 (137-145) mmol/L Potassium 3.7 (3.5-5.1) mmol/L Chloride 103 (98-107) mmol/L Carbon Dioxide 25 (22-30) mmol/L Anion Gap 11 mmol/L BUN 19 H (7-17) mg/dL Creatinine 0.82 (0.52-1.04) mg/dL Est GFR (CKD-EPI)AfAm >90 (>60 ml/min/1.73 sqM) Est GFR (CKD-EPI)NonAf 84 (>60 ml/min/1.73 sqM) Glucose 94 (74-99) mg/dL Calcium 9.3 (8.4-10.2) mg/dL Total Bilirubin 0.4 (0.2-1.3) mg/dL AST 33 (14-36) U/L ALT 35 (9-52) U/L Alkaline Phosphatase 94 (38-126) U/L Total Protein 6.6 (6.3-8.2) g/dL Albumin 4.3 (3.5-5.0) g/dL - Radiology Data Two-view x-ray of the chest is obtained. Report was reviewed in its entirety. Impression by Dr. Morton shows no acute findings. 5-6 mm right lower lung nodule, which was seen previously. Recommend CT or chest x-ray follow-up to ensure stability. (Corina Villavicencio) Disposition Is patient prescribed a controlled substance at d/c from ED?: Yes When asked, does pt state using other controlled substances?: No If prescribed controlled substance>3 days was MAPS reviewed?: Prescribed <3 Days If Rx opioid, was Start Talking consent form obtained?: Yes Time of Disposition: 05:10 <Corina Villavicencio - Last Filed: 10/21/18 05:17> <Charmaine Bliss P - Last Filed: 10/21/18 07:23> Clinical Impression: Acute bronchitis Disposition: HOME SELF-CARE Condition: Good Instructions (If sedation given, give patient instructions): Acute Bronchitis (ED) Additional Instructions: Continue medications prescribed by Urgent Care physician. Stop taking phenergan with codeine and switch to tussionex. Follow up with your primary care physician for recheck in 1-2 days. Return to the emergency department for any new, worsening, or concerning symptoms. Prescriptions: CHLORPHEN-HYDROcod 8-10mg/5ml [Tussionex] 5 ml PO Q12HR PRN 3 Days #30 ml PRN Reason: Cough Referrals: Kwasi Santiago MD [Primary Care Provider] - 1-2 days
--- NOTE | 2018-10-21 04:58 | XR ---
EXAM: XR Chest, 2 Views CLINICAL HISTORY: ITS.REASON XR Reason: Pain TECHNIQUE: Frontal and lateral views of the chest. COMPARISON: 09/27/18 chest x-ray FINDINGS: Lungs: No consolidation or mass. 5-6 mm nodule in the right lower lung. Pleural space: No effusion. Heart: No cardiomegaly. Mediastinum: Unremarkable. Bones/joints: No acute findings. IMPRESSION: No acute findings. 5-6 mm right lower lung nodule, which was seen previously. Recommend CT or chest x-ray follow-up to ensure stability.
[2018-10-21 06:19] VITALS: BP 130/78; PULSE 79; RESP 24; TEMP 98.4
== END 2018-10-21 05:20 | disposition home or self-care (01) ==
LOC: EC 03:07
DX: J20.9 Acute bronchitis, unspecified (principal); J45.909 Unspecified asthma, uncomplicated; K21.9 Gastro-esophageal reflux disease without esophagitis; K58.9 Irritable bowel syndrome, unspecified; Z87.891 Personal history of nicotine dependence; Z79.899 Other long term (current) drug therapy; Z88.0 Allergy status to penicillin; Z88.1 Allergy status to other antibiotic agents; Z88.2 Allergy status to sulfonamides; Z91.040 Latex allergy status; Z91.010 Allergy to peanuts; Z91.013 Allergy to seafood; Z91.018 Allergy to other foods; Z88.8 Allergy status to other drugs, medicaments and biological substances; Z91.011 Allergy to milk products; Z91.012 Allergy to eggs; Z53.8 Procedure and treatment not carried out for other reasons
CPT/HCPCS: 36415; 94640; 80053; 85025; 71046; 99285; 96374; J2930

== ENCOUNTER → 2020-07-06 | Outpatient (CLI) | payer BC | END | disposition home or self-care (01) | LOC: LABWHC1 13:04 | PROVIDERS: ATTEND Family Medicine | DX: Z20.828 Contact with and (suspected) exposure to other viral communicable diseases (principal) | CPT/HCPCS: U0003; C9803 ==

== ENCOUNTER → 2021-02-07 | Outpatient (CLI) | payer BC ==
--- NOTE | 2021-02-09 07:19 | CT ---
EXAMINATION TYPE: CT chest wo con DATE OF EXAM: 02/07/2021 COMPARISON: Chest CT July 21, 2018. Outside chest x-ray January 19, 2021 HISTORY: Covid. Shortness of breath. Prior abnormal chest x-ray. CT DLP: 458 mGycm. Automated Exposure Control for Dose Reduction was Utilized. TECHNIQUE: CT scan of the thorax is performed without IV contrast. FINDINGS: LUNGS: There is mild to moderate underlying emphysematous change redemonstrated. There is lobulated c alcified nodule or 2 adjacent small calcified nodule subpleural superior aspect right lower lobe on a xial image 34 redemonstrated and stable. There is linear scarring medially in the right middle lobe a nd additional central linear scarring in the left lung base near diaphragm both was slightly nodular or thickened components including new 1.7 x 1.3 cm nodule or nodular thickening axial image 35, this abuts the minor fissure on sagittal images. Hounsfield units average 23 units. There is mild to moder ate bibasilar linear scarring and/or atelectasis is redemonstrated. No suspicious consolidation or gr oundglass opacity is seen. No pleural effusion or pneumothorax is seen bilaterally. Tracheobronchial tree is patent. Stable scattered micronodules for reference right lung base medially axial image 55. MEDIASTINUM: Lack of IV contrast is noted to limit evaluation for mediastinal and especially hilar ad enopathy. There are no definitive new greater than 1 cm mediastinal lymph nodes. No cardiomegaly or pericardial effusion is seen. Fairly moderate calcified plaque in the LAD is redemonstrated. OTHER: There is 3. 3.8 cm thin-walled cyst posteriorly mid pole level left kidney on last axial image s only partially imaged. Slight scoliotic curvature. IMPRESSION: 1. Anterior mid to lower lungs at site of mild to moderate scarring shows new 1.7 x 1.3 cm nodule or nodular scarring or even possibly rounded atelectasis. However new nodule cannot be excluded. Advise PET CT follow-up. 2. Mild to moderate chronic emphysematous change with scattered fibrosis without acute pulmonary proc ess .
== END | disposition home or self-care (01) ==
LOC: RADCTMAIN 14:58
PROVIDERS: ATTEND Internal Medicine Critical Care Medicine
DX: R91.1 Solitary pulmonary nodule (principal); J84.10 Pulmonary fibrosis, unspecified; R06.02 Shortness of breath
CPT/HCPCS: 71250

== ENCOUNTER → 2021-02-24 | Outpatient (CLI) | payer BC ==
--- NOTE | 2021-03-02 14:41 | PE ---
Nuclear medicine PET/CT HISTORY: Solitary pulmonary nodule, initial Patient received 10.1 mCi F-18 FDG intravenously in delayed scanning was performed from the skull bas e to the mid thighs. Localization and attenuation correction CT was performed. Correlation to CT chest 02/07/2021 Chest and neck: There is extensive emphysematous change present within the lungs, no pleural pericard ial effusion. Wedge-shaped area of increased attenuation present within the lingula appears to be ass ociated with the fissure, some local air bronchograms are present, only mild uptake, SUV 2.1. The nod ular density in the subpleural location on the right is calcified. Small prevascular node is present. There is no mediastinal, axillar, or hilar adenopathy. Coronary artery calcification is present. No supraclavicular or cervical adenopathy. No other evidence suspicious uptake. ABDOMEN: There is no evident liver mass or retroperitoneal adenopathy. No suspicious uptake, there is no ascites. Shows low-attenuation likely due to hepatic steatosis. There is a probable cortical cyst associated with the midpole the left kidney measuring 4 cm, no suspicious uptake present at this lev el. At the upper pole of the left kidney there is a smaller hypodensity present measuring 15 mm. Ther e is an umbilical hernia containing fat. Diverticular changes extensive within the sigmoid colon. Osseous structures show no suspicious uptake. IMPRESSION: Only mild uptake identified within the lingula, findings may be inflammatory, consider sh ort interval follow-up to assess for stability. Coronary artery disease and additional findings above .
== END | disposition home or self-care (01) ==
LOC: RADPETMAIN 17:10
PROVIDERS: ATTEND Internal Medicine Critical Care Medicine
DX: R91.8 Other nonspecific abnormal finding of lung field (principal)
CPT/HCPCS: 78815; A9552

== ENCOUNTER → 2021-09-04 | Outpatient (CLI) | payer BC ==
--- NOTE | 2021-09-04 10:33 | CT ---
EXAMINATION TYPE: CT chest wo con DATE OF EXAM: 09/04/2021 INDICATION: Abnormal finding of lung field CT DLP: 246.2 mGy.cm Automated Exposure Control for Dose Reduction was Utilized. TECHNIQUE AND CONTRAST: Multiplanar CT scan of the chest without IV contrast administration. COMPARISON: CT dated 02/07/2021 FINDINGS: The previously described triangular opacity in the lingula has actually markedly decreased in size an d became a linear atelectasis today. Persistent adjacent linear atelectasis in the lingula along the left oblique fissure. Persistent pulmonary emphysematous changes mainly in the upper lobes. Bilateral basal linear pulmonary atelectasis. Stable calcified granuloma at the lateral aspect of the right lower lobe. Scattered tiny calcified granulomas, stable. Unchanged thickened atelectasis/scarr ing along the medial aspect of the middle lobe base with persistent loss of volume of the middle lobe and adjacent traction bronchiectasis. Left lower lobe anterior cyst, stable. No new suspicious or progressive lung lesion. Patent trachea a nd main bronchi. No pleural or pericardial effusion. Coronary and aortic arterial atherosclerotic andrea cifications. No progressive lymphadenopathy in the chest. Left upper pole renal cysts, appreciated pr eviously. No aggressive bone lesion. IMPRESSION: Regressing lingular lesion into linear atelectasis as described above consistent with benign lesion. No new suspicious or progressive lung lesion. Chronic and incidental findings as described above.
[2021-09-04 21:02] LABS: Alternaria alternata IgE <0.10 kU/L; Aspergillus fumagatus IgE <0.10 kU/L; Birch IgE <0.10 kU/L; Cat Epith & Dander IgE 0.81 kU/L; Cladosporian herbarum IgE <0.10 kU/L; Cockroach IgE <0.10 kU/L; Dermato. farinae IgE 0.14 kU/L; Dog Dander IgE <0.10 kU/L; Elm IgE <0.10 kU/L; Maple (Box Elder) IgE <0.10 kU/L; Oak IgE <0.10 kU/L; Ragweed,Common IgE 0.19 kU/L; Red Top (Bentgrass) IgE 0.82 kU/L
== END | disposition home or self-care (01) ==
LOC: RADCTMAIN 08:09
PROVIDERS: ATTEND Internal Medicine Critical Care Medicine
DX: J98.11 Atelectasis (principal)
CPT/HCPCS: 71250; 82785; 86003

== ENCOUNTER → 2021-12-01 | Outpatient (CLI) | payer BC ==
--- NOTE | 2021-12-04 08:29 | BD ---
EXAMINATION TYPE: Axial Bone Density DATE OF EXAM: 12/01/2021 COMPARISON: NONE CLINICAL HISTORY: 51 years year old Female. ICD-10 CODE: N95.1 Post menopausal symptoms Height: 61.5 Weight: 143 FRAX RISK QUESTIONS: Alcohol (3 or more units per day): NO Family History (Parent hip fracture): NO Glucocorticoids (More than 3mos): NO History of Fracture in Adulthood: NO Secondary Osteoporosis: NO 1. Type 1 Diabetes: NO 2. Hyperthyroidism: NO 3. Menopause before 45: NO 4. Malnutrition: NO 5. Chronic liver disease: NO Rheumatoid Arthritis: NO Current Tobacco Use: NO RISK FACTORS HISTORY OF: Hip Fracture (Right/Left): NO Spine Fracture: NO History of Wrist Fracture: NO Surgery to Spine/Hip(right/left)/Wrist (right/left): NO Family History of Osteoporosis: MOTHER Active: YES Diet low in dairy products/other sources of calcium: YES Postmenopausal woman: YES Take estrogen and/or progesterone medications: NO Lost more than 2 inches in height since high school: YES Frequent falls: NO Poor Health: NO Hyperparathyroidism: NO Adrenal Insufficiency: NO MEDICATIONS: Prednisone or other steroids: NO Thyroid Medications: NO Osteoporosis Medications: NO Additional Medications: CALCIUM, VIT D, INHALER X2, REFLUX MEDS, SINGULAR, Additional History: EXAM MEASUREMENTS: Bone mineral densitometry was performed using the [employer] System. Bone mineral density as measured about the Lumbar spine is: ----- L1-L4(G/cm2): 0.923 T Score Values are as follows: ----- L1: -2.3 ----- L2: -2.5 ----- L3: -1.6 ----- L4: -2.3 ----- L1-L4: -2.1 BASELINE STUDY Bone mineral density about the R hip (g/cm2): 0.727 Bone mineral density about the L hip (g/cm2): 0.795 T Score values are as follows: -----R Neck: -2.2 -----L Neck: -1.7 -----R Total: -1.1 -----L Total: -0.8 BASELINE STUDY FRAX%s: The graph provided illustrates a 7.3% chance for a major osteoporotic fx and a 1.2% chance fo r the hips probability for fx in 10 years time. IMPRESSION: Osteopenia (T Score between -2.5 and -1). There is slightly increased risk of fracture and the patient may be considered for treatment. Re-Screen 2-5 years. NOTE: T-SCORE=SD OF THE YOUNG ADULT MEAN.
== END | disposition home or self-care (01) ==
LOC: RADBDWWP 10:04
PROVIDERS: ATTEND Family Medicine
DX: N95.1 Menopausal and female climacteric states (principal); M85.80 Other specified disorders of bone density and structure, unspecified site
CPT/HCPCS: 77080

== ENCOUNTER → 2021-12-01 | Outpatient (CLI) | payer BC ==
--- NOTE | 2021-12-05 17:32 | MM ---
Reason for Exam: Screening (asymptomatic). Last mammogram was performed 5 year(s) and 0 month(s) ago. Patient History: Menarche at age 10. First Full-Term at age 18. Postmenopausal. Currently using Hormonal Contraceptives, for 1 month. Last menstrual period: 07/08/2018 Risk Values: Princess 5 year model risk: 0.8%. NCI Lifetime model risk: 6.9%. Film Views: Bilateral CC views were taken. Bilateral MLO views were taken. Prior Study Comparison: 05/01/2004 Bilateral Screening Mammogram, [facility]. 10/28/2008 Bilateral Diagnostic Mammogram, [facility]. 11/20/2016 Bilateral Screening Mammogram, [facility]. Tissue Density: There are scattered fibroglandular densities. Findings: Analyzed By CAD. No significant change from prior exams. Overall Assessment: Negative, BI-RAD 1 Management: Screening Mammogram of both breasts in 1 year. A clinical breast exam by your physician is recommended on an annual basis and results should be correlated with mammographic findings. Also, the patient should continue monthly self breast exams. Electronically signed and approved by: Shelly Espana M.D. Radiologist
== END | disposition home or self-care (01) ==
LOC: RADMAMWWP 10:01
PROVIDERS: ATTEND Obstetrics & Gynecology
DX: Z12.39 Encounter for other screening for malignant neoplasm of breast (principal)
CPT/HCPCS: 77063; 77067

== ENCOUNTER → 2022-04-25 | Outpatient (CLI) | payer BC ==
--- NOTE | 2022-04-25 14:53 | USB ---
Reason for Exam: Clinical finding. Patient History: Menarche at age 10. First Full-Term at age 18. Postmenopausal. Currently using Hormonal Contraceptives, for 1 month. Risk Values: Princess 5 year model risk: 0.9%. NCI Lifetime model risk: 6.8%. Technique: Method: Whole Breast Handheld. Prior Study Comparison: 10/28/2008 Bilateral Diagnostic Mammogram, [facility]. 11/20/2016 Bilateral Screening Mammogram, [facility]. 12/01/2021 Bilateral MG 3D screening mammo w/cad, [facility]. Findings: The whole breast of the left breast, the axilla of the left breast and the retroareolar of the left breast were scanned. A complete US of all four quadrants of the breast and retro-areolar region were reviewed. No solid or cystic masses are identified.. Overall Assessment: Benign, BI-RAD 2 Management: Screening Mammogram of both breasts in 6 months. A clinical breast exam by your physician is recommended on an annual basis and results should be correlated with mammographic findings. This exam should not preclude additional follow-up of suspicious palpable abnormalities. ??Results were given to the patient verbally at the time of exam. Electronically signed and approved by: Earle Alvarez D.O.
--- NOTE | 2022-04-25 14:53 | USB ---
Reason for Exam: Clinical finding. Patient History: Menarche at age 10. First Full-Term at age 18. Postmenopausal. Currently using Hormonal Contraceptives, for 1 month. Risk Values: Princess 5 year model risk: 0.9%. NCI Lifetime model risk: 6.8%. Technique: Method: Whole Breast Handheld. Prior Study Comparison: 10/28/2008 Bilateral Diagnostic Mammogram, [facility]. 11/20/2016 Bilateral Screening Mammogram, [facility]. 12/01/2021 Bilateral MG 3D screening mammo w/cad, [facility]. Findings: The whole breast of the left breast, the axilla of the left breast and the retroareolar of the left breast were scanned. A complete US of all four quadrants of the breast and retro-areolar region were reviewed. No solid or cystic masses are identified.. Overall Assessment: Benign, BI-RAD 2 Management: Screening Mammogram of both breasts in 6 months. A clinical breast exam by your physician is recommended on an annual basis and results should be correlated with mammographic findings. This exam should not preclude additional follow-up of suspicious palpable abnormalities. ??Results were given to the patient verbally at the time of exam. Electronically signed and approved by: Earle Alvarez D.O.
== END | disposition home or self-care (01) ==
LOC: RADUSWWP 14:17
PROVIDERS: ATTEND Family Medicine
DX: R92.8 Other abnormal and inconclusive findings on diagnostic imaging of breast (principal)

== ENCOUNTER 2023-01-10 11:00 | Emergency (ER) | payer BC ==
[2023-01-10 11:04] VITALS: BP 164/100; PULSE 104; RESP 20; TEMP 98.5
[2023-01-10] MEDS ORDERED: ACETAMINOPHEN TAB 500 MG TAB PO STA (11:24)
[2023-01-10] MEDS ORDERED: KETOROLAC 15 MG/ML 1 ML VIAL IVP STA (11:24)
--- NOTE | 2023-01-10 11:27 | ED ---
General Adult HPI - General Chief complaint: Chest Pain Stated complaint: Chest, ANGE Time Seen by Provider: 01/10/23 11:05 Source: patient, RN notes reviewed, old records reviewed Mode of arrival: ambulatory Limitations: no limitations - History of Present Illness Initial comments: This a 52-year-old female presents emergency room complaining of right lateral chest wall pain. Patient states 4 days ago she was at work and the patient pushed back on her and twisted her upper chest quickly and at that time it didn't hurt within the next day she started having pain with deep breathing. Pain with movement or pain with coughing. Patient states the pain continues today but it is worse today so she decided come and be evaluated. Patient denies any shortness of breath but has difficulty breathing comes it hurts. Patient denies any fever chills. Patient has any back pain. Patient denies abdominal pain patient's nausea vomiting diarrhea. Patient denies lightheadedness or dizziness. Patient denies any swelling to the legs or calf tenderness - Related Data Home Medications Medication Instructions Recorded Confirmed Albuterol Nebulized [Ventolin 2.5 mg INHALATION RT-Q4H PRN 10/24/16 10/11/21 Nebulized] Ibuprofen [Advil] 600 mg PO Q8HR PRN 11/09/16 10/11/21 Omeprazole [PriLOSEC] 20 mg PO HS 07/02/18 10/11/21 Albuterol Sulfate [Proair Hfa] 1 - 2 puff INHALATION RT-Q4H PRN 10/11/21 10/11/21 Ascorbic Acid [Vitamin C] 1,000 mg PO HS 10/11/21 10/11/21 Calcium Carbonate/Vitamin D3 1 cap PO BID 10/11/21 10/11/21 [Calcium 600 mg-D3 10 Mcg (400 Iu)] Cyanocobalamin (Vitamin B-12) 1,000 mcg PO DAILY 10/11/21 10/11/21 [Vitamin B-12] Fluticasone/Umeclidin/Vilanter 1 puff INHALATION RT-HS 10/11/21 10/11/21 [Trelegy Ellipta 100-62.5-25] Loratadine [Claritin] 10 mg PO HS 10/11/21 10/11/21 Montelukast Sodium [Singulair] 10 mg PO HS 10/11/21 10/11/21 Multivit-Min/Folic Acid/Biotin 1 cap PO HS 10/11/21 10/11/21 [Hair, Skin and Nails Softgel] Zinc Gluconate [Zinc] 50 mg PO HS 10/11/21 10/11/21 Previous Rx's Medication Instructions Recorded Albuterol Nebulized [Ventolin 2.5 mg INHALATION Q6H 6 Days #75 ml 10/11/21 Nebulized] guaiFENesin [Mucinex] 600 mg PO Q6HR #28 tab 10/11/21 predniSONE [Deltasone] 20 mg PO BID #10 tab 10/11/21 Ketorolac [Toradol] 10 mg PO Q6HR #15 tab 01/10/23 Allergies Allergy/AdvReac Type Severity Reaction Status Date / Time clindamycin Allergy Rash/Hives Verified 01/10/23 11:04 egg Allergy Rash/Hives Verified 01/10/23 11:04 iodine Allergy Anaphylaxis Verified 01/10/23 11:04 latex Allergy rash, Verified 01/10/23 11:04 burning, itching nickel Allergy Rash/Hives Verified 01/10/23 11:04 orange juice [[place]] Allergy Anaphylaxis Verified 01/10/23 11:04 peanut Allergy Anaphylaxis Verified 01/10/23 11:04 Penicillins Allergy Anaphylaxis Verified 01/10/23 11:04 prochlorperazine Allergy Unknown Verified 01/10/23 11:04 [From Compazine] shellfish derived Allergy Anaphylaxis Verified 01/10/23 11:04 sulfamethoxazole Allergy Rash/Hives Verified 01/10/23 11:04 [From Bactrim] tetracycline Allergy Rash/Hives Verified 01/10/23 11:04 trimethoprim [From Bactrim] Allergy Rash/Hives Verified 01/10/23 11:04 lactose AdvReac Nausea Verified 01/10/23 11:04 Review of Systems ROS Statement: Those systems with pertinent positive or pertinent negative responses have been documented in the HPI. ROS Other: All systems not noted in ROS Statement are negative. 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 Holman esophageal stretching Past Anesthesia/Blood Transfusion Reactions: Family History of Problems w/ Anesthesia, Motion Sickness, Postoperative Nausea & Vomiting (PONV) Additional Past Anesthesia/Blood Transfusion Reaction / Comment(s): reaction at dentist office-"vomiting and tingling", dad is "allergic to anesthesia"-not sure what happen Past Psychological History: No Psychological Hx Reported Smoking Status: Former smoker Past Alcohol Use History: Rare Past Drug Use History: None Reported - Past Family History Mother Family Medical History: Deep Vein Thrombosis (DVT) Father Family Medical History: Hypertension General Exam - General Exam Comments Initial Comments: GENERAL: Patient is well-developed and well-nourished. Patient is nontoxic and well- hydrated and is in moderate distress. ENT: Neck is soft and supple. No significant lymphadenopathy is noted. Oropharynx is clear. Moist mucous membranes. Neck has full range of motion without eliciting any pain. EYES: The sclera were anicteric and conjunctiva were pink and moist. Extraocular movements were intact and pupils were equal round and reactive to light. Eyelids were unremarkable. PULMONARY: Unlabored respirations. Good breath sounds bilaterally. No audible rales rhonc hi or wheezing was noted. CARDIOVASCULAR: There is a regular rate and rhythm without any murmurs gallops or rubs. Patient is tender to palpation in the lateral right chest wall and also hurts with deep inspiration ABDOMEN: Soft and nontender with normal bowel sounds. SKIN: Skin is clear with no lesions or rashes and otherwise unremarkable. NEUROLOGIC: Patient is alert and oriented x3. Cranial nerves II through XII are grossly intact. Motor and sensory are also intact. Normal speech, volume and content. Symmetrical smile. MUSCULOSKELETAL: Normal extremities with adequate strength and full range of motion. No lower extremity swelling or edema. No calf tenderness. LYMPHATICS: No significant lymphadenopathy is noted PSYCHIATRIC: Normal psychiatric evaluation. Limitations: no limitations Course Vital Signs 01/10/23 11:01 Temperature 98.5 F Pulse Rate 104 H Respiratory 20 Rate Blood Pressure 164/100 O2 Sat by Pulse 93 L Oximetry Medical Decision Making - Medical Decision Making EKG was interpreted by myself shows a sinus rhythm at 84 bpm OH interval is 133 QRS is 92 QT interval 370 QTC is 420. Patient's EKG shows no ST segment patient or depression. Was pt. sent in by a medical professional or institution (, ROBERT, POWER REACTOR SUPERVISOR, urgent care, hospital, or halfway...) When possible be specific @ -No Did you speak to anyone other than the patient for history (EMS, parent, family, police, friend...)? What history was obtained from this source @ -No Did you review nursing and triage notes (agree or disagree)? Why? @ -I reviewed and agree with nursing and triage notes Were old charts reviewed (outside hosp., previous admission, EMS record, old EKG, old radiological studies, urgent care reports/EKG's, halfway records)? Report findings @ -No old charts were reviewed Differential Diagnosis (chest pain, altered mental status, abdominal pain women, abdominal pain men, vaginal bleeding, weakness, fever, dyspnea, syncope, headache, dizziness, GI bleed, back pain, seizure, CVA, palpatations, mental health, musculoskeletal)? @ -Differential Chest Pain: Stable Angina, Unstable Angina, STEMI, NSTEMI Aortic Dissection, Pneumothorax, Musculoskeletal, Esophageal Spasm GERD, Cholecystitis, Pancreatitis, Zoster, this is not meant to be an all-inclusive list. EKG interpreted by me (3pts min.). @ -As above X-rays interpreted by me (1pt min.). @ -Chest x-ray shows no acute abnormality CT interpreted by me (1pt min.). @ -None done U/S interpreted by me (1pt. min.). @ -None done What testing was considered but not performed or refused? (CT, X-rays, U/S, labs)? Why? @ -None What meds were considered but not given or refused? Why? @ -None Did you discuss the management of the patient with other professionals (professionals i.e. ROBERT Tubbs, POWER REACTOR SUPERVISOR, lab, RT, psych nurse, social sciences lecturer, armoured corps officer, teacher, property portfolio officer, family preservation caseworker)? Give summary @ -No Was smoking cessation discussed for >3mins.? @ -No Was critical care preformed (if so, how long)? @ -No Were there social determinants of health that impacted care today? How? (Homelessness, low income, unemployed, alcoholism, drug addiction, transportation, low edu. Level, literacy, decrease access to med. care, custodial, rehab)? @ -No Was there de-escalation of care discussed even if they declined (Discuss DNR or withdrawal of care, Hospice)? DNR status @ -No What co-morbidities impacted this encounter? (DM, HTN, Smoking, COPD, CAD, Cancer, CVA, ARF, Chemo, Hep., AIDS, mental health diagnosis, sleep apnea, morbid obesity)? @ -None Was patient admitted / discharged? Hospital course, mention meds given and route, prescriptions, significant lab abnormalities, going to OR and other pertinent info. @ -Patient had lab work done showed no elevation in d-dimer no elevation of troponin. Chest x-ray was normal. Patient's pain was reduced with Toradol. Patient's pain was reproducible with movement and/or pressure on the lateral chest wall. Undiagnosed new problem with uncertain prognosis? @ -No Drug Therapy requiring intensive monitoring for toxicity (Heparin, Nitro, Insulin, Cardizem)? @ -No Were any procedures done? @ -No Diagnosis/symptom? @ -Chest Wall pain Acute, or Chronic, or Acute on Chronic? @ -Acute Uncomplicated (without systemic symptoms) or Complicated (systemic symptoms)? @ -Complicated Side effects of treatment? @ -No Exacerbation, Progression, or Severe Exacerbation? @ -No Poses a threat to life or bodily function? How? (Chest pain, [place], [place], pneumonia, PE, COPD, DKA, ARF, appy, cholecystitis, CVA, Diverticulitis, Homicidal, Suicidal, threat to staff... and all critical care pts) @ -No - Lab Data Result diagrams: 01/10/23 11:28 01/10/23 11:28 Lab Results 01/10/23 01/10/23 01/10/23 Range/Units 11:28 11:28 11:28 WBC 6.2 (3.8-10.6) k/uL RBC 4.82 (3.80-5.40) m/uL Hgb 15.7 (11.4-16.0) gm/dL Hct 45.5 (34.0-46.0) % MCV 94.5 (80.0-100.0) fL MCH 32.6 (25.0-35.0) pg MCHC 34.5 (31.0-37.0) g/dL RDW 12.7 (11.5-15.5) % Plt Count 271 (150-450) k/uL MPV 7.2 Neutrophils % 69 % Lymphocytes % 20 % Monocytes % 6 % Eosinophils % 3 % Basophils % 0 % Neutrophils # 4.3 (1.3-7.7) k/uL Lymphocytes # 1.2 (1.0-4.8) k/uL Monocytes # 0.4 (0-1.0) k/uL Eosinophils # 0.2 (0-0.7) k/uL Basophils # 0.0 (0-0.2) k/uL D-Dimer 0.34 (<0.60) mg/L FEU Sodium 137 (137-145) mmol/L Potassium 3.7 (3.5-5.1) mmol/L Chloride 105 (98-107) mmol/L Carbon Dioxide 21 L (22-30) mmol/L Anion Gap 11 mmol/L BUN 17 (7-17) mg/dL Creatinine 0.69 (0.52-1.04) mg/dL Est GFR (CKD-EPI)AfAm >90 (>60 ml/min/1.73 sqM) Est GFR (CKD-EPI)NonAf >90 (>60 ml/min/1.73 sqM) Glucose 111 H (74-99) mg/dL Calcium 9.3 (8.4-10.2) mg/dL Magnesium 2.2 (1.6-2.3) mg/dL Total Bilirubin 0.9 (0.2-1.3) mg/dL AST 38 H (14-36) U/L ALT 48 H (4-34) U/L Alkaline Phosphatase 120 (38-126) U/L Troponin I (0.000-0.034) ng/mL Total Protein 7.3 (6.3-8.2) g/dL Albumin 4.5 (3.5-5.0) g/dL 01/10/23 Range/Units 11:28 WBC (3.8-10.6) k/uL RBC (3.80-5.40) m/uL Hgb (11.4-16.0) gm/dL Hct (34.0-46.0) % MCV (80.0-100.0) fL MCH (25.0-35.0) pg MCHC (31.0-37.0) g/dL RDW (11.5-15.5) % Plt Count (150-450) k/uL MPV Neutrophils % % Lymphocytes % % Monocytes % % Eosinophils % % Basophils % % Neutrophils # (1.3-7.7) k/uL Lymphocytes # (1.0-4.8) k/uL Monocytes # (0-1.0) k/uL Eosinophils # (0-0.7) k/uL Basophils # (0-0.2) k/uL D-Dimer (<0.60) mg/L FEU Sodium (137-145) mmol/L Potassium (3.5-5.1) mmol/L Chloride (98-107) mmol/L Carbon Dioxide (22-30) mmol/L Anion Gap mmol/L BUN (7-17) mg/dL Creatinine (0.52-1.04) mg/dL Est GFR (CKD-EPI)AfAm (>60 ml/min/1.73 sqM) Est GFR (CKD-EPI)NonAf (>60 ml/min/1.73 sqM) Glucose (74-99) mg/dL Calcium (8.4-10.2) mg/dL Magnesium (1.6-2.3) mg/dL Total Bilirubin (0.2-1.3) mg/dL AST (14-36) U/L ALT (4-34) U/L Alkaline Phosphatase (38-126) U/L Troponin I <0.012 (0.000-0.034) ng/mL Total Protein (6.3-8.2) g/dL Albumin (3.5-5.0) g/dL Disposition Clinical Impression: Chest wall pain Disposition: HOME SELF-CARE Instructions (If sedation given, give patient instructions): Chest Wall Pain (ED) Prescriptions: Ketorolac [Toradol] 10 mg PO Q6HR #15 tab Is patient prescribed a controlled substance at d/c from ED?: No Referrals: Lizzy Santiago DO [Primary Care Provider] - 1-2 days Time of Disposition: 13:04
[2023-01-10 11:36] LABS: Basophils % (A) 0 %; Eosinophils # (A) 0.2 k/uL (0-0.7); Eosinophils % (A) 3 %; HCT 45.5 % (34.0-46.0); HGB 15.7 gm/dL (11.4-16.0); Lymphocytes # (A) 1.2 k/uL (1.0-4.8); Lymphocytes % (A) 20 %; MCH 32.6 pg (25.0-35.0); MCHC 34.5 g/dL (31.0-37.0); MCV 94.5 fL (80.0-100.0); Mean Platelet Volume 7.2; Monocytes # (A) 0.4 k/uL (0-1.0); Monocytes % (A) 6 %; Neutrophils # (A) 4.3 k/uL (1.3-7.7); Neutrophils % (A) 69 %; Platelet Count 271 k/uL (150-450); RBC 4.82 m/uL (3.80-5.40); RDW 12.7 % (11.5-15.5); WBC 6.2 k/uL (3.8-10.6)
--- NOTE | 2023-01-10 11:45 | XR ---
EXAMINATION TYPE: XR chest 2V DATE OF EXAM: 01/10/2023 11:39 AM COMPARISON: Chest radiographs from 10/31/2021, CT chest 09/04/2021 TECHNIQUE: XR chest 2V Frontal and lateral views of the chest. CLINICAL INDICATION:Female, 52 years old with history of Chest Pain; FINDINGS: Lungs/Pleura: There is flattening of the diaphragm with increased lucency of the lungs. No evidence o f pneumothorax, pleural effusion or focal consolidation. Stable right midlung calcified granuloma. Pulmonary vascularity: Unremarkable. Heart/mediastinum: Cardiomediastinal silhouette is unremarkable. Musculoskeletal: No acute osseous pathology. IMPRESSION: Chronic changes without evidence for acute process.
[2023-01-10 12:01] LABS: ALT 48 U/L (4-34); AST 38 U/L (14-36); African American GFR (CKD) >90 (>60 ml/min/1.73 sqM); Albumin 4.5 g/dL (3.5-5.0); Alkaline Phosphatase 120 U/L (38-126); Anion Gap 11 mmol/L; Blood Urea Nitrogen 17 mg/dL (7-17); Calcium 9.3 mg/dL (8.4-10.2); Carbon Dioxide 21 mmol/L (22-30); Chloride 105 mmol/L (98-107); Glucose 111 mg/dL (74-99); Magnesium 2.2 mg/dL (1.6-2.3); Non-African American GFR(CKD) >90 (>60 ml/min/1.73 sqM); Potassium 3.7 mmol/L (3.5-5.1); Sodium 137 mmol/L (137-145); Total Bilirubin 0.9 mg/dL (0.2-1.3); Total Protein 7.3 g/dL (6.3-8.2)
[2023-01-10] MEDS ORDERED: LIDOCAINE 5% PATCH TOPICAL SCH (12:32)
[2023-01-10] MEDS ORDERED: ACET/COD 300 MG/30 MG STARTER PACK 6 TAB BTL PO STA ×2 (13:11→13:32)
[2023-01-11] MEDS ORDERED: LIDOCAINE 5% PATCH TOPICAL SCH (09:00)
== END 2023-01-10 13:36 | disposition home or self-care (01) ==
LOC: EC 11:00
DX: R07.89 Other chest pain (principal); J45.909 Unspecified asthma, uncomplicated; K21.9 Gastro-esophageal reflux disease without esophagitis; Z79.51 Long term (current) use of inhaled steroids; Z79.899 Other long term (current) drug therapy; Z88.0 Allergy status to penicillin; Z88.1 Allergy status to other antibiotic agents; Z88.2 Allergy status to sulfonamides; Z88.8 Allergy status to other drugs, medicaments and biological substances; Z91.040 Latex allergy status; Z91.012 Allergy to eggs; Z91.010 Allergy to peanuts; Z91.013 Allergy to seafood; Z91.011 Allergy to milk products; Z91.018 Allergy to other foods; Z87.891 Personal history of nicotine dependence
CPT/HCPCS: 36415; 93005; 85379; 80053; 83735; 84484; 85025; 71046; 99285; 96374; J1885

== ENCOUNTER → 2023-05-06 | Outpatient (CLI) | payer BC ==
--- NOTE | 2023-05-07 18:53 | MM ---
Reason for Exam: Screening (asymptomatic). Last mammogram was performed 1 year(s) and 5 month(s) ago. Patient History: Menarche at age 10. First Full-Term at age 18. Postmenopausal. Currently using Hormonal Contraceptives, for 1 month. Paternal cousin had breast cancer. Risk Values: Princess 5 year model risk: 0.9%. NCI Lifetime model risk: 6.7%. Prior Study Comparison: 10/28/2008 Bilateral Diagnostic Mammogram, [facility]. 11/20/2016 Bilateral Screening Mammogram, [facility]. 12/01/2021 Bilateral MG 3D screening mammo w/cad, [facility]. Tissue Density: There are scattered fibroglandular densities. Findings: Analyzed By CAD. There is no suspicious group of microcalcifications or new suspicious mass in either breast. Overall Assessment: Negative, BI-RAD 1 Management: Screening Mammogram of both breasts in 1 year. . Patient should continue monthly self-breast exams. A clinical breast exam by your physician is recommended on an annual basis. This exam should not preclude additional follow-up of suspicious palpable abnormalities. Note on Princess scores and lifetime risk: 1. A Princess score greater than 3% is considered moderate risk. If this is the case, consider specialist referral to assess eligibility for a risk reducing agent. 2. If overall lifetime risk for the development of breast cancer is 20% or higher, the patient may qualify for future screening with alternating mammogram and breast MRI. Electronically signed and approved by: Shelly Espana M.D. Radiologist
== END | disposition home or self-care (01) ==
LOC: RADMAMWWP 16:01
PROVIDERS: ATTEND Family Medicine
DX: Z12.31 Encounter for screening mammogram for malignant neoplasm of breast (principal); Z78.0 Asymptomatic menopausal state; Z80.3 Family history of malignant neoplasm of breast
CPT/HCPCS: 77063; 77067

== ENCOUNTER 2023-07-03 10:27 | Day surgery (SDC) | payer BC ==
[~2023-07-03 10:27] MED LIST changes: -DEXAMETHASONE SOD PHOSPHATE 10 MG/ML 1 ML VIAL IV ONE; -HYDROmorphone 0.5 MG/0.5 ML SYRINGE IVP PRN; +LIDOCAINE 1% (10MG/ML) FOR IV START INTRADERMA PRN; -LIDOCAINE 1% 20 ML VIAL (10MG/ML) FOR IV START INTRADERMA PRN; -ONDANSETRON 4 MG/2 ML VIAL IVP ONE; -SCOPOLAMINE 1.5MG/72HR PATCH TRANSDERM ONE
[2023-07-03 11:28] VITALS: TEMP 97.8
[2023-07-03 11:38] LABS: Glucose,Whole Blood 93 mg/dL (70-110)
[2023-07-03] MEDS ORDERED: LIDOCAINE 1% INJ 10MG/ML (20 ML MDV) ONE (12:28)
[2023-07-03] MEDS ORDERED: PROPOFOL 10 MG/ML 20 ML VIAL IV ONE (12:28)
--- NOTE | 2023-07-03 12:45 | P.PCN ---
Date of Procedure: 07/03/23 Procedure(s) Performed: BRIEF HISTORY: Patient is a 53-year-old pleasant white female scheduled for an elective colonoscopy as a part of screening for colon cancer/positive: cologuard PROCEDURE PERFORMED: Colonoscopy PREOPERATIVE Diagnosis: Screening for colon cancer/positive cologuard. IV sedation per Anesthesia. PROCEDURE: After informed consent was obtained, the patient, was brought into the endoscopy unit. IV sedation was administered by Anesthesia under continuous monitoring. Digital rectal examination was normal. Initially the Olympus CF-160 flexible video colonoscope was then insertedhe rectum, gradually advanced into the cecum without any difficulty. Careful examination was performed as the scope was gradually being withdrawn. Ileocecal valve and the appendiceal orifice were visualized and appeared normal. Prep was excellent. Mucosa of the cecum, ascending colon, transverse colon, descending colon, sigmoid colon, and rectum appeared normal. Retroflexion was performed in the rectum and no lesions were seen. The patient tolerated the procedure well. IMPRESSION: Normal-appearing colon from rectum to cecum with no evidence of colorectal neoplasia Scattered sigmoid diverticulosis. RECOMMENDATIONS: Findings of this examination were discussed with the patient as well as her family. She was advised to have a repeat screening colonoscopy in 10 years.
[2023-07-03 13:05] VITALS: PULSE 88; RESP 16
[2023-07-03 13:30] VITALS: BP 176/93
== END 2023-07-03 13:45 | disposition home or self-care (01) ==
LOC: ORWHC2ENDO 10:27
PROVIDERS: ATTEND Internal Medicine Gastroenterology
DX: K57.30 Diverticulosis of large intestine without perforation or abscess without bleeding (principal); I10 Essential (primary) hypertension; E78.5 Hyperlipidemia, unspecified; I48.91 Unspecified atrial fibrillation; J45.909 Unspecified asthma, uncomplicated; K21.9 Gastro-esophageal reflux disease without esophagitis; K44.9 Diaphragmatic hernia without obstruction or gangrene; Z91.040 Latex allergy status; Z88.0 Allergy status to penicillin; Z79.899 Other long term (current) drug therapy; Z90.49 Acquired absence of other specified parts of digestive tract
CPT/HCPCS: 45378; J2001; J2704

== ENCOUNTER → 2023-07-30 | Outpatient (CLI) | payer BC ==
--- NOTE | 2023-07-30 15:29 | CTL ---
EXAMINATION TYPE: CT Low Dose Lung DATE OF EXAM ORDERED: 07/30/2023 HISTORY: . Lung cancer screening CT DLP: 73.[address] CTDI: 2.0 mGy Automated exposure control for dose reduction was used. SCREENING VISIT: Initial COMPARISON: 09/04/2021 TECHNIQUE: Low dose computed tomography scan was performed through the chest at 1 mm thick sections a nd reconstructed images in the coronal plane at [address] DIAGNOSTIC QUALITY: Satisfactory FINDINGS: LUNG NODULES: Present, detailed below: 1. There is a calcification in the periphery of the right lung. Series 6 image 34. 2. There is a punctate calcification in the posterior right lung base. Series 3 image 255. 3. Punctate density in the posterior medial right lung base. Series 3 image 268. #4 punctate density anterior right middle lobe. Series 3 image 193. LUNGS: COPD: Severity: Mild Fibrosis: Severity: None Lymph nodes: None Other findings: None RIGHT PLEURAL SPACE: Effusion: None Calcification: None Thickening: None Pneumothorax: None LEFT PLEURAL SPACE: Effusion: None Calcification: None Thickening: None Pneumothorax: None HEART: Heart Size: Normal Coronary calcification: Mild Pericardial effusion: None OTHER FINDINGS: Upper abdomen: Normal Bony thorax: Normal Supraclavicular region: Normal Other: Ascending thoracic aorta at the level the main pulmonary artery measures 2. cm. The main pulm onary artery at the bifurcation measures 1.5 cm. IMPRESSION: 1. Benign appearance findings FOLLOW UP CT CHEST RECOMMENDATION: Follow-up low-dose CT chest one year CT LUNG RAD: Lung-Rad 2 Benign Appearance or Behavior
== END | disposition home or self-care (01) ==
LOC: RADCTMAIN 13:33
PROVIDERS: ATTEND Internal Medicine Critical Care Medicine
DX: Z12.2 Encounter for screening for malignant neoplasm of respiratory organs (principal); Z87.891 Personal history of nicotine dependence
CPT/HCPCS: 71271

== ENCOUNTER 2023-08-11 13:23 | Emergency (ER) | payer BC ==
[2023-08-11 13:53] VITALS: RESP 18
--- NOTE | 2023-08-11 14:22 | ED ---
General Adult HPI - General Chief complaint: Wound/Laceration Stated complaint: R thumb injury Time Seen by Provider: 08/11/23 14:03 Source: patient, RN notes reviewed Mode of arrival: ambulatory Limitations: no limitations - History of Present Illness Initial comments: 53-year-old female presents to the emergency department for evaluation of left thumb injury. Patient was cutting sweet potatoes with a mandoline slicer when she cut her thumb. She reports that this occurred around 2:30 PM yesterday She has applied pressure and a dressing but it continues to bleed. She is on aspirin 81mg, no other blood thinners. Last tetanus vaccination 3 years ago. - Related Data Home Medications Medication Instructions Recorded Confirmed Albuterol Nebulized [Ventolin 2.5 mg INHALATION RT-Q4H PRN 10/24/16 07/03/23 Nebulized] Omeprazole [PriLOSEC] 20 mg PO HS 07/02/18 07/03/23 Albuterol Sulfate [Proair Hfa] 1 - 2 puff INHALATION RT-Q4H PRN 10/11/21 07/03/23 Fluticasone/Umeclidin/Vilanter 1 puff INHALATION RT-DAILY 10/11/21 07/03/23 [Trelegy Ellipta 100-62.5-25] Montelukast Sodium [Singulair] 10 mg PO DAILY 10/11/21 07/03/23 Aspirin [[place] Aspirin EC] 81 mg PO DAILY 01/10/23 07/03/23 Levocetirizine Dihydrochloride 5 mg PO HS 01/10/23 07/03/23 [Xyzal] Losartan [Cozaar] 50 mg PO DAILY 01/10/23 07/03/23 Rosuvastatin [Crestor] 20 mg PO DAILY 01/10/23 07/03/23 Allergies Allergy/AdvReac Type Severity Reaction Status Date / Time clindamycin Allergy Rash/Hives Verified 08/11/23 13:40 egg Allergy Rash/Hives Verified 08/11/23 13:40 iodine Allergy Anaphylaxis Verified 08/11/23 13:40 latex Allergy rash, Verified 08/11/23 13:40 burning, itching nickel Allergy Rash/Hives Verified 08/11/23 13:40 orange juice [Agar] Allergy Anaphylaxis Verified 08/11/23 13:40 peanut Allergy Anaphylaxis Verified 08/11/23 13:40 Penicillins Allergy Anaphylaxis Verified 08/11/23 13:40 prochlorperazine Allergy Unknown Verified 08/11/23 13:40 [From Compazine] shellfish derived Allergy Anaphylaxis Verified 08/11/23 13:40 sulfamethoxazole Allergy Rash/Hives Verified 08/11/23 13:40 [From Bactrim] tetracycline Allergy Rash/Hives Verified 08/11/23 13:40 trimethoprim [From Bactrim] Allergy Rash/Hives Verified 08/11/23 13:40 lactose AdvReac Nausea Verified 08/11/23 13:40 Review of Systems ROS Statement: Those systems with pertinent positive or pertinent negative responses have been documented in the HPI. ROS Other: All systems not noted in ROS Statement are negative. 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 Holman esophageal stretching Past Anesthesia/Blood Transfusion Reactions: Family History of Problems w/ Anesthesia, Motion Sickness, Postoperative Nausea & Vomiting (PONV) Additional Past Anesthesia/Blood Transfusion Reaction / Comment(s): reaction at dentist office-"vomiting and tingling", dad is "allergic to anesthesia"-not sure what happen Past Psychological History: No Psychological Hx Reported Smoking Status: Former smoker Past Alcohol Use History: Occasional Past Drug Use History: None Reported - Past Family History Mother Family Medical History: Deep Vein Thrombosis (DVT) Father Family Medical History: Hypertension General Exam Limitations: no limitations General appearance: alert, in no apparent distress Head exam: Present: atraumatic, normocephalic, normal inspection Eye exam: Present: normal appearance, PERRL, EOMI. Absent: scleral icterus, conjunctival injection, periorbital swelling ENT exam: Present: normal exam, mucous membranes moist Respiratory exam: Present: normal lung sounds bilaterally. Absent: respiratory distress, wheezes, rales, rhonchi, stridor Cardiovascular Exam: Present: regular rate, normal rhythm, normal heart sounds. Absent: systolic murmur, diastolic murmur, rubs, gallop, clicks Neurological exam: Present: alert, oriented X3 Psychiatric exam: Present: normal affect, normal mood Skin exam: Present: warm, dry, normal color, other (Skin avulsion to the right distal thumb on the volar aspect). Absent: intact Course Vital Signs 08/11/23 08/11/23 13:36 15:41 Temperature 98.2 F 97.9 F Pulse Rate 90 67 Respiratory 18 18 Rate Blood Pressure 173/84 126/80 O2 Sat by Pulse 96 99 Oximetry Medical Decision Making - Medical Decision Making Was pt. sent in by a medical professional or institution (, PA, COMMISSION ASSOCIATE, urgent care, hospital, or care home...) When possible be specific @ -[No] Did you speak to anyone other than the patient for history (EMS, parent, family, police, friend...)? What history was obtained from this source @ -[No] Did you review nursing and triage notes (agree or disagree)? Why? @ -[I reviewed and agree with nursing and triage notes] Were old charts reviewed (outside hosp., previous admission, EMS record, old EKG, old radiological studies, urgent care reports/EKG's, care home records)? Report findings @ -[No old charts were reviewed] Differential Diagnosis (chest pain, altered mental status, abdominal pain women, abdominal pain men, vaginal bleeding, weakness, fever, dyspnea, syncope, headache, dizziness, GI bleed, back pain, seizure, CVA, palpatations, mental h ealth, musculoskeletal)? @ -Differential Musculoskeletal Muscular strain, contusion, ligament sprain, fracture, arthritis, septic arthritis, bursitis, cellulitis, muscle spasm, nerve compression, DVT, arterial occlusion, herpes zoster, electrolyte abnormality, tumor.... This is not meant to be in all inclusive list EKG interpreted by me (3pts min.). @ -None X-rays interpreted by me (1pt min.). @ -[None done] CT interpreted by me (1pt min.). @ -[None done] U/S interpreted by me (1pt. min.). @ -[None done] What testing was considered but not performed or refused? (CT, X-rays, U/S, labs)? Why? @ -[None] What meds were considered but not given or refused? Why? @ -[None] Did you discuss the management of the patient with other professionals (professionals i.e. , PA, COMMISSION ASSOCIATE, lab, RT, psych nurse, child protective services social worker, ventilated rib fitter, teacher, conservation enforcement officer, returned case inspector)? Give summary @ -[No] Was smoking cessation discussed for >3mins.? @ -[No] Was critical care preformed (if so, how long)? @ -[No] Were there social determinants of health that impacted care today? How? (Homelessness, low income, unemployed, alcoholism, drug addiction, transportation, low edu. Level, literacy, decrease access to med. care, group home, rehab)? @ -[No] Was there de-escalation of care discussed even if they declined (Discuss DNR or withdrawal of care, Hospice)? DNR status @ -[No] What co-morbidities impacted this encounter? (DM, HTN, Smoking, COPD, CAD, Cancer, CVA, ARF, Chemo, Hep., AIDS, mental health diagnosis, sleep apnea, morbid obesity)? @ -[None] Was patient admitted / discharged? Hospital course, mention meds given and route, prescriptions, significant lab abnormalities, going to OR and other pertinent info. @ -[Discharge. Patient presented to the emergency department for evaluation of right thumb skin avulsion. She states that this happened yesterday and she has cleaned it but it continues to bleed. She is not on blood thinners. She is up-to-date on her tetanus vaccination. Let and Gelfoam was applied and bleeding was controlled. Pressure dressing was applied to the finger and advised to keep the wound clean and dry. Patient understanding agreeable plan. Patient stable at time of discharge. Case discussed with Dr. Young.] Undiagnosed new problem with uncertain prognosis? @ -[No] Drug Therapy requiring intensive monitoring for toxicity (Heparin, Nitro, Insulin, Cardizem)? @ -[No] Were any procedures done? @ -[No] Diagnosis/symptom? @ -[Skin avulsion to right thumb] Acute, or Chronic, or Acute on Chronic? @ -Acute Uncomplicated (without systemic symptoms) or Complicated (systemic symptoms)? @ -Uncomplicated Side effects of treatment? @ -[No] Exacerbation, Progression, or Severe Exacerbation? @ -[No] Poses a threat to life or bodily function? How? (Chest pain, [place], [place], pneumonia, PE, COPD, DKA, ARF, appy, cholecystitis, CVA, Diverticulitis, Homicidal, Suicidal, threat to staff... and all critical care pts) @ -[No] Disposition Clinical Impression: Avulsion of skin of finger Disposition: HOME SELF-CARE Condition: Stable Instructions (If sedation given, give patient instructions): Skin Avulsion (ED) Additional Instructions: Please follow up with your primary care provider. Return to the emergency department for new or worsening symptoms. Is patient prescribed a controlled substance at d/c from ED?: No Referrals: Kwasi Santiago MD [Primary Care Provider] - 1-2 days
[2023-08-11] MEDS: LIDOCAINE/EPINEPHR/TETRACAINE 5 ML BOTTLE TOPICAL ONE (14:38)
[2023-08-11] MEDS: GELATIN SPONGE,ABSORB (SMALL) 1 EACH SPONGE TOPICAL STA (14:41)
[2023-08-11 16:05] VITALS: BP 126/80; PULSE 67; TEMP 97.9
== END 2023-08-11 15:47 | disposition home or self-care (01) ==
LOC: EC 13:23
DX: S61.001A Unspecified open wound of right thumb without damage to nail, initial encounter (principal); J45.909 Unspecified asthma, uncomplicated; K21.9 Gastro-esophageal reflux disease without esophagitis; Z79.51 Long term (current) use of inhaled steroids; Z79.899 Other long term (current) drug therapy; Z88.1 Allergy status to other antibiotic agents; Z91.012 Allergy to eggs; Z91.040 Latex allergy status; Z88.8 Allergy status to other drugs, medicaments and biological substances; Z91.018 Allergy to other foods; Z91.010 Allergy to peanuts; Z88.0 Allergy status to penicillin; Z91.013 Allergy to seafood; Z88.2 Allergy status to sulfonamides; Z91.011 Allergy to milk products; Z91.041 Radiographic dye allergy status; Z86.16 Personal history of COVID-19; Z87.891 Personal history of nicotine dependence; Z90.49 Acquired absence of other specified parts of digestive tract; W26.8XXA Contact with other sharp object(s), not elsewhere classified, initial encounter; Y93.G1 Activity, food preparation and clean up
CPT/HCPCS: 99282

== ENCOUNTER → 2024-05-05 | Outpatient (CLI) | payer BC ==
--- NOTE | 2024-05-05 22:50 | CT ---
EXAMINATION TYPE: CT brain wo con DATE OF EXAM: 05/05/2024 COMPARISON: 02/24/2021 INDICATION: Headaches and hypertension. DLP: 1121 mGycm, Automated exposure control for dose reduction was used. CONTRAST: None CT of the brain is performed utilizing 3 mm thick sections through the posterior fossa and 3 mm thick sections through the remaining calvarium. Study is performed within 24 hours of arrival to the hosp ital. No abnormal hyperdensity is present to suggest an acute intracranial hemorrhage. No mass lesion is evident. No acute infarcts are evident. Appears to be some minimal white matter hypodensity present likely on the basis of chronic white matter ischemic changes. This is mild. Ventricles and sulci are appropriate for the patient age. Paranasal sinuses and mastoid air cells within the [id number] are clear. IMPRESSION: 1. No acute intracranial process. Follow up MRI can be performed as clinically indicated. 2. Mild periventricular white matter ischemic type changes [facility], Workstation: [facility], 05/05/2024 10:48 PM
== END | disposition home or self-care (01) ==
LOC: RADCTMAIN 15:30
PROVIDERS: ATTEND Family Medicine
CPT/HCPCS: 70450

== ENCOUNTER 2024-06-15 19:58 | Emergency (ER) | payer BC, OTHER ==
--- NOTE | 2024-06-15 22:06 | ED ---
Back Pain HPI - General Chief Complaint: Back Pain/Injury Stated Complaint: Back pain Time Seen by Provider: 06/15/24 20:15 Source: patient, RN notes reviewed Limitations: no limitations - History of Present Illness Initial Comments: 54-year-old female presents emergency department chief complaint of flank pain. Patient states she has low back pain, flank pain with some dysuria. Patient states she has had UTIs, kidney infection kidney stones in the past. She states she had minimal nausea pain waxes and wanes. She reports no fever but possible chills body aches. No localized abdominal pain mild lower abdominal cramping otherwise. Patient denies any chest pain. - Related Data Home Medications Medication Instructions Recorded Confirmed Albuterol Nebulized [Ventolin 2.5 mg INHALATION RT-Q4H PRN 10/24/16 07/03/23 Nebulized] Omeprazole [PriLOSEC] 20 mg PO HS 07/02/18 07/03/23 Fluticasone/Umeclidin/Vilanter 1 puff INHALATION RT-DAILY 10/11/21 07/03/23 [Trelegy Ellipta 100-62.5-25] Montelukast Sodium [Singulair] 10 mg PO DAILY 10/11/21 07/03/23 RX: Albuterol Sulfate [Proair Hfa] 1 - 2 puff INHALATION RT-Q4H PRN 10/11/21 07/03/23 Aspirin [Leslie Aspirin EC] 81 mg PO DAILY 01/10/23 07/03/23 Levocetirizine Dihydrochloride 5 mg PO HS 01/10/23 07/03/23 [Xyzal] Losartan [Cozaar] 50 mg PO DAILY 01/10/23 07/03/23 Rosuvastatin [Crestor] 20 mg PO DAILY 01/10/23 07/03/23 Previous Rx's Medication Instructions Recorded Ketorolac [Toradol] 10 mg PO Q8HR #15 tab 06/16/24 Allergies Allergy/AdvReac Type Severity Reaction Status Date / Time clindamycin Allergy Rash/Hives Verified 06/15/24 20:11 egg Allergy Rash/Hives Verified 06/15/24 20:11 iodine Allergy Anaphylaxis Verified 06/15/24 20:11 latex Allergy rash, Verified 06/15/24 20:11 burning, itching nickel Allergy Rash/Hives Verified 06/15/24 20:11 orange juice [[place]] Allergy Anaphylaxis Verified 06/15/24 20:11 peanut Allergy Anaphylaxis Verified 06/15/24 20:11 Penicillins Allergy Anaphylaxis Verified 06/15/24 20:11 prochlorperazine Allergy Unknown Verified 06/15/24 20:11 [From Compazine] shellfish derived Allergy Anaphylaxis Verified 06/15/24 20:11 sulfamethoxazole Allergy Rash/Hives Verified 06/15/24 20:11 [From Bactrim] tetracycline Allergy Rash/Hives Verified 06/15/24 20:11 trimethoprim [From Bactrim] Allergy Rash/Hives Verified 06/15/24 20:11 lactose AdvReac Nausea Verified 06/15/24 20:11 Review of Systems ROS Statement: Those systems with pertinent positive or pertinent negative responses have been documented in the HPI. ROS Other: All systems not noted in ROS Statement are negative. 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 Holman esophageal stretching Past Anesthesia/Blood Transfusion Reactions: Family History of Problems w/ Anesthesia, Motion Sickness, Postoperative Nausea & Vomiting (PONV) Additional Past Anesthesia/Blood Transfusion Reaction / Comment(s): reaction at dentist office-"vomiting and tingling", dad is "allergic to anesthesia"-not sure what happen Past Psychological History: No Psychological Hx Reported Smoking Status: Former smoker Past Alcohol Use History: Occasional Past Drug Use History: None Reported - Past Family History Mother Family Medical History: Deep Vein Thrombosis (DVT) Father Family Medical History: Hypertension General Exam Limitations: no limitations General appearance: alert, in no apparent distress Head exam: Present: atraumatic, normocephalic, normal inspection Eye exam: Present: normal appearance, PERRL, EOMI. Absent: scleral icterus, conjunctival injection, periorbital swelling ENT exam: Present: normal exam, normal oropharynx, mucous membranes moist Neck exam: Present: normal inspection, full ROM. Absent: tenderness, meningismus, lymphadenopathy Respiratory exam: Present: normal lung sounds bilaterally. Absent: respiratory distress, wheezes, rales, rhonchi, stridor Cardiovascular Exam: Present: regular rate, normal rhythm, normal heart sounds. Absent: systolic murmur, diastolic murmur, rubs, gallop, clicks GI/Abdominal exam: Present: soft, normal bowel sounds. Absent: distended, tenderness, guarding, rebound, rigid Back exam: Present: CVA tenderness (L). Absent: CVA tenderness (R) Neurological exam: Present: alert Skin exam: Present: warm, dry, intact, normal color. Absent: rash Course Vital Signs 06/15/24 06/15/24 06/15/24 20:10 22:14 23:13 Temperature 98.2 F 97.6 F Pulse Rate 94 72 87 Respiratory 18 18 15 Rate Blood Pressure 181/99 168/91 168/82 O2 Sat by Pulse 95 96 93 L Oximetry 06/16/24 01:03 Temperature Pulse Rate 77 Respiratory 18 Rate Blood Pressure 168/97 O2 Sat by Pulse 95 Oximetry Medical Decision Making - Medical Decision Making Was pt. sent in by a medical professional or institution (, PA, SYSTEMS PROGRAMMER, urgent care, hospital, or jail...) When possible be specific @ -No Did you speak to anyone other than the patient for history (EMS, parent, family, police, friend...)? What history was obtained from this source @ -No Did you review nursing and triage notes (agree or disagree)? Why? @ -I reviewed and agree with nursing and triage notes Were old charts reviewed (outside hosp., previous admission, EMS record, old EKG, old radiological studies, urgent care reports/EKG's, jail records)? Report findings @ -No old charts were reviewed Differential Diagnosis (chest pain, altered mental status, abdominal pain women, abdominal pain men, vaginal bleeding, weakness, fever, dyspnea, syncope, headache, dizziness, GI bleed, back pain, seizure, CVA, palpatations, mental health, musculoskeletal)? @ -Differential Back Pain: Strain, zoster, cauda equina syndrome, epidural abscess, vertebral osteomyelitis, discitis, fracture, subluxation, disc herniation, DJD, spinal stenosis, dissection, AAA, pancreatitis, peptic ulcer disease, pyelonephritis, kidney stone, this is not meant to be an all-inclusive list. EKG interpreted by me (3pts min.). @ -None X-rays interpreted by me (1pt min.). @ -None done CT interpreted by me (1pt min.). @ -CT abdomen pelvis showing no acute intra-abdominal process U/S interpreted by me (1pt. min.). @ -None done What testing was considered but not performed or refused? (CT, X-rays, U/S, labs)? Why? @ -None What meds were considered but not given or refused? Why? @ -None Did you discuss the management of the patient with other professionals (professionals i.e. , PA, SYSTEMS PROGRAMMER, lab, RT, psych nurse, social work professor, buggyman, teacher, ship's electronic warfare officer, casey saw operator)? Give summary @ -No Was smoking cessation discussed for >3mins.? @ -No Was critical care preformed (if so, how long)? @ -No Were there social determinants of health that impacted care today? How? (Homelessness, low income, unemployed, alcoholism, drug addiction, transporta tion, low edu. Level, literacy, decrease access to med. care, correction, rehab)? @ -No Was there de-escalation of care discussed even if they declined (Discuss DNR or withdrawal of care, Hospice)? DNR status @ -No What co-morbidities impacted this encounter? (DM, HTN, Smoking, COPD, CAD, Cancer, CVA, ARF, Chemo, Hep., AIDS, mental health diagnosis, sleep apnea, morbid obesity)? @ -None Was patient admitted / discharged? Hospital course, mention meds given and route, prescriptions, significant lab abnormalities, going to OR and other pertinent info. @ -Discharge patient presented for back pain concern for UTI kidney infection kidney stones negative viral workup this may be musculoskeletal in nature. Patient was treated with Toradol which did improve symptoms patient discharged with Toradol return parameters lady. Undiagnosed new problem with uncertain prognosis? @ -No Drug Therapy requiring intensive monitoring for toxicity (Heparin, Nitro, Insulin, Cardizem)? @ -No Were any procedures done? @ -No Diagnosis/symptom? @ -Back pain, flank pain Acute, or Chronic, or Acute on Chronic? @ -Acute Uncomplicated (without systemic symptoms) or Complicated (systemic symptoms)? @ -Uncomplicated Side effects of treatment? @ -No Exacerbation, Progression, or Severe Exacerbation? @ -No Poses a threat to life or bodily function? How? (Chest pain, [place], NH, pneumonia, PE, COPD, DKA, ARF, appy, cholecystitis, CVA, Diverticulitis, Homicidal, Suicidal, threat to staff... and all critical care pts) @ -No - Lab Data Result diagrams: 06/15/24 22:14 06/15/24 22:14 Lab Results 06/15/24 06/15/24 06/15/24 Range/Units 22:14 22:14 22:14 WBC 6.2 (3.8-10.6) k/uL RBC 4.81 (3.80-5.40) m/uL Hgb 16.2 H (11.4-16.0) gm/dL Hct 47.0 H (34.0-46.0) % MCV 97.6 (80.0-100.0) fL MCH 33.6 (25.0-35.0) pg MCHC 34.4 (31.0-37.0) g/dL RDW 11.9 (11.5-15.5) % Plt Count 268 (150-450) k/uL MPV 6.8 Neutrophils % 55 % Lymphocytes % 33 % Monocytes % 7 % Eosinophils % 3 % Basophils % 1 % Neutrophils # 3.4 (1.3-7.7) k/uL Lymphocytes # 2.0 (1.0-4.8) k/uL Monocytes # 0.4 (0-1.0) k/uL Eosinophils # 0.2 (0-0.7) k/uL Basophils # 0.0 (0-0.2) k/uL Sodium 138 (137-145) mmol/L Potassium 3.6 (3.5-5.1) mmol/L Chloride 108 H (98-107) mmol/L Carbon Dioxide 23 (22-30) mmol/L Anion Gap 7 mmol/L BUN 15 (7-17) mg/dL Creatinine 0.70 (0.52-1.04) mg/dL Est GFR (CKD-EPI)AfAm >90 (>60 ml/min/1.73 sqM) Est GFR (CKD-EPI)NonAf >90 (>60 ml/min/1.73 sqM) Glucose 113 H (74-99) mg/dL Calcium 9.4 (8.4-10.2) mg/dL Total Bilirubin 0.5 (0.2-1.3) mg/dL AST 24 (14-36) U/L ALT 33 (4-34) U/L Alkaline Phosphatase 119 (38-126) U/L Total Protein 6.9 (6.3-8.2) g/dL Albumin 4.8 (3.5-5.0) g/dL Urine Color Colorless Urine Appearance Clear (Clear) Urine pH 6.5 (5.0-8.0) Ur Specific [place] 1.003 (1.001-1.035) Urine Protein Negative (Negative) Urine Glucose (UA) Negative (Negative) Urine Ketones Negative (Negative) Urine Blood Negative (Negative) Urine Nitrite Negative (Negative) Urine Bilirubin Negative (Negative) Urine Urobilinogen <2.0 (<2.0) mg/dL Ur Leukocyte Esterase Negative (Negative) Disposition Clinical Impression: Back pain, Flank pain Disposition: HOME SELF-CARE Condition: Stable Instructions (If sedation given, give patient instructions): Back Pain (ED) Additional Instructions: Please return to the Emergency Department if symptoms worsen or any other concerns. Prescriptions: Ketorolac [Toradol] 10 mg PO Q8HR #15 tab Is patient prescribed a controlled substance at d/c from ED?: No Referrals: Kwasi Santiago MD [Primary Care Provider] - 1-2 days Time of Disposition: 00:53
[2024-06-15] MEDS: ONDANSETRON 4 MG/2 ML VIAL IVP STA (22:10)
[2024-06-15] MEDS: SODIUM CHLORIDE 0.9% 1,000 ML IV ONE (22:10)
[2024-06-15] MEDS: KETOROLAC 15 MG/ML 1 ML VIAL IVP STA ×2 (22:12→23:10)
[2024-06-15 22:28] LABS: Basophils % (A) 1 %; Eosinophils # (A) 0.2 k/uL (0-0.7); Eosinophils % (A) 3 %; HGB 16.2 gm/dL (11.4-16.0); Lymphocytes % (A) 33 %; MCH 33.6 pg (25.0-35.0); MCHC 34.4 g/dL (31.0-37.0); MCV 97.6 fL (80.0-100.0); Mean Platelet Volume 6.8; Monocytes # (A) 0.4 k/uL (0-1.0); Monocytes % (A) 7 %; Neutrophils # (A) 3.4 k/uL (1.3-7.7); Neutrophils % (A) 55 %; Platelet Count 268 k/uL (150-450); RBC 4.81 m/uL (3.80-5.40); RDW 11.9 % (11.5-15.5); WBC 6.2 k/uL (3.8-10.6)
[2024-06-15 22:32] LABS: Appearance,Urine Clear (Clear); Bilirubin,Urine Negative (Negative); Blood,Urine Negative (Negative); Color,Urine Colorless; Glucose,Urine (UA) Negative (Negative); Ketones,Urine Negative (Negative); Leukocyte Esterase,Urine Negative (Negative); Nitrite,Urine Negative (Negative); PH, Urine 6.5 (5.0-8.0); Protein,Urine Negative (Negative); Specific Gravity,Urine 1.003 (1.001-1.035); Urobilinogen,Urine <2.0 mg/dL (<2.0)
[2024-06-15 22:42] LABS: ALT 33 U/L (4-34); AST 24 U/L (14-36); African American GFR (CKD) >90 (>60 ml/min/1.73 sqM); Albumin 4.8 g/dL (3.5-5.0); Alkaline Phosphatase 119 U/L (38-126); Anion Gap 7 mmol/L; Blood Urea Nitrogen 15 mg/dL (7-17); Calcium 9.4 mg/dL (8.4-10.2); Carbon Dioxide 23 mmol/L (22-30); Chloride 108 mmol/L (98-107); Glucose 113 mg/dL (74-99); Non-African American GFR(CKD) >90 (>60 ml/min/1.73 sqM); Potassium 3.6 mmol/L (3.5-5.1); Sodium 138 mmol/L (137-145); Total Bilirubin 0.5 mg/dL (0.2-1.3); Total Protein 6.9 g/dL (6.3-8.2)
[2024-06-15 23:16] VITALS: TEMP 97.6
--- NOTE | 2024-06-16 00:46 | CT ---
EXAM: CT Abdomen and Pelvis Without Intravenous Contrast CLINICAL HISTORY: ITS.REASON CT Reason: flank pain TECHNIQUE: Axial computed tomography images of the abdomen and pelvis without intravenous contrast. CTDI is 8 mGy and DLP is 407.1 mGy-cm. This CT exam was performed using one or more of the following dose reduction techniques: automated exposure control, adjustment of the mA and/or kV according to patient size, and/or use of iterative reconstruction technique. COMPARISON: No relevant prior studies available. FINDINGS: Lung bases: Unremarkable. No mass. No consolidation. ABDOMEN: Liver: Unremarkable. Gallbladder and bile ducts: Unremarkable. No calcified stones. No ductal dilation. Pancreas: Unremarkable. No ductal dilation. Spleen: Unremarkable. No splenomegaly. Adrenals: Unremarkable. No mass. Kidneys and ureters: A LEFT renal cyst measures 4.6 cm. No hydronephrosis, nephrolithiasis, or obstructive uropathy. Stomach and bowel: Diverticulosis, without acute diverticulitis. No small bowel obstruction. No free intraperitoneal air. PELVIS: Appendix: No findings to suggest acute appendicitis. Bladder: Unremarkable. No stones. Reproductive: Unremarkable as visualized. ABDOMEN and PELVIS: Intraperitoneal space: Unremarkable. No free air. No significant fluid collection. Bones/joints: Degenerative changes of the spine. No acute fracture. No dislocation. Soft tissues: Unremarkable. Vasculature: Atherosclerotic changes of the aorta. No abdominal aortic aneurysm. Lymph nodes: Unremarkable. No enlarged lymph nodes. IMPRESSION: 1. No hydronephrosis, nephrolithiasis, or obstructive uropathy. 2. Diverticulosis, without acute diverticulitis. No small bowel obstruction. No free intraperitoneal air.
[2024-06-16 01:05] VITALS: BP 168/97; PULSE 77; RESP 18
== END 2024-06-16 01:04 | disposition home or self-care (01) ==
LOC: EC 19:58
DX: M54.50 Low back pain, unspecified (principal); R10.30 Lower abdominal pain, unspecified; Z87.891 Personal history of nicotine dependence; Z88.0 Allergy status to penicillin; Z88.1 Allergy status to other antibiotic agents; Z88.2 Allergy status to sulfonamides; Z88.8 Allergy status to other drugs, medicaments and biological substances; Z91.040 Latex allergy status; Z91.041 Radiographic dye allergy status; Z91.010 Allergy to peanuts; Z91.012 Allergy to eggs; Z91.018 Allergy to other foods; Z91.013 Allergy to seafood; Z91.011 Allergy to milk products
CPT/HCPCS: 36415; 80053; 85025; 81003; 74176; 99284; 96374; 96375; 96376; 96361 ×2; J2405; J1885